=== PATIENT | male | born 1970 | race Caucasian/White ===

== ENCOUNTER → 2016-07-10 | Outpatient (REF) | payer OTHER | LOC: M SFHCLERA 12:29 | PROVIDERS: ATTEND Physician Assistant | DX: J02.9 Acute pharyngitis, unspecified (principal) ==

== ENCOUNTER → 2017-06-19 | Outpatient (REF) | payer OTHER ==
[2017-06-19 15:43] LABS: CHOLESTEROL LEVEL 272 MG/DL (<200); TRIGLYCERIDES LEVEL 287 MG/DL (<150)
== END ==
LOC: M SFHCLERA 09:02
DX: E78.5 Hyperlipidemia, unspecified (principal)

== ENCOUNTER → 2017-07-16 | Outpatient (CLI) | payer OTHER | LOC: M LRY 10:28 | DX: R07.81 Pleurodynia (principal) | CPT/HCPCS: 71100 ==

== ENCOUNTER → 2017-09-17 | Outpatient (REF) | payer OTHER ==
[2017-09-17 18:34] LABS: HEMATOCRIT 46.5 % (42.0-52.0); HEMOGLOBIN 15.5 g/dl (13.5-17.5); MEAN CORPUSCULAR HEMOGLOBIN 32.6 pg (27.0-33.0); MEAN CORPUSCULAR HGB CONC 33.3 g/dl (32.0-36.5); MEAN CORPUSCULAR VOLUME 97.7 fl (80.0-96.0); PLATELET COUNT, AUTOMATED 142 10^3/uL (150-450); RED BLOOD COUNT 4.76 10^6/uL (4.30-6.10); RED CELL DISTRIBUTION WIDTH 12.2 % (11.5-14.5); WHITE BLOOD COUNT 7.7 10^3/uL (4.0-10.0)
[2017-09-17 18:46] LABS: ALBUMIN 3.6 GM/DL (3.2-5.2); ALBUMIN/GLOBULIN RATIO 1.09 (1.00-1.93); ALKALINE PHOSPHATASE 142 U/L (45-117); ALT/SGPT 76 U/L (12-78); ANION GAP 5 MEQ/L (8-16); AST/SGOT 39 U/L (7-37); BILIRUBIN,TOTAL 0.4 MG/DL (0.2-1.0); BLOOD UREA NITROGEN 9 MG/DL (7-18); CALCIUM LEVEL 8.6 MG/DL (8.5-10.1); CARBON DIOXIDE LEVEL 35 MEQ/L (21-32); CHLORIDE LEVEL 97 MEQ/L (98-107); CHOLESTEROL LEVEL 163 MG/DL (<200); CREATININE FOR GFR 0.68 MG/DL (0.70-1.30); GLOMERULAR FILTRATION RATE > 60.0 (>60); GLUCOSE, FASTING 212 MG/DL (70-100); HDL CHOLESTEROL 50 MG/DL (>40); LDL CHOLESTEROL 88.6 MG/DL (<100); NON-HDL-C 113 MG/DL; POTASSIUM SERUM 3.6 MEQ/L (3.5-5.1); SODIUM LEVEL 137 MEQ/L (136-145); TOTAL PROTEIN 6.9 GM/DL (6.4-8.2); TRIGLYCERIDES LEVEL 122 MG/DL (<150)
[2017-09-17 18:51] LABS: ESTIMATED AVERAGE GLUCOSE 232 MG/DL (60-110); HEMOGLOBIN A1c 9.7 %
[2017-09-17 19:06] LABS: MALB URINE SIEMENS 15.5 MG/L; MAU/CREAT RATIO 9.3 MCG/MG (0.0-30.0)
== END ==
LOC: M SFHCLERA 09:37
DX: E11.65 Type 2 diabetes mellitus with hyperglycemia (principal); I10 Essential (primary) hypertension; E78.2 Mixed hyperlipidemia

== ENCOUNTER → 2018-02-05 | Outpatient (REF) | payer OTHER ==
[2018-02-05 19:02] LABS: ALBUMIN 3.5 GM/DL (3.2-5.2); ALBUMIN/GLOBULIN RATIO 0.97 (1.00-1.93); ALKALINE PHOSPHATASE 119 U/L (45-117); ALT/SGPT 56 U/L (12-78); ANION GAP 7 MEQ/L (8-16); AST/SGOT 26 U/L (7-37); BILIRUBIN,TOTAL 0.3 MG/DL (0.2-1.0); BLOOD UREA NITROGEN 10 MG/DL (7-18); CALCIUM LEVEL 8.6 MG/DL (8.5-10.1); CARBON DIOXIDE LEVEL 35 MEQ/L (21-32); CHLORIDE LEVEL 99 MEQ/L (98-107); CREATININE FOR GFR 0.73 MG/DL (0.70-1.30); GLOMERULAR FILTRATION RATE > 60.0 (>60); GLUCOSE, FASTING 133 MG/DL (70-100); POTASSIUM SERUM 3.9 MEQ/L (3.5-5.1); SODIUM LEVEL 141 MEQ/L (136-145); TOTAL PROTEIN 7.1 GM/DL (6.4-8.2)
[2018-02-05 19:07] LABS: ESTIMATED AVERAGE GLUCOSE 180 MG/DL (60-110); HEMOGLOBIN A1c 7.9 %
== END ==
LOC: M SFHCLERA 09:09
DX: E11.65 Type 2 diabetes mellitus with hyperglycemia (principal)

== ENCOUNTER → 2018-05-07 | Outpatient (REF) | payer OTHER ==
[2018-05-07 19:08] LABS: ALBUMIN 3.7 GM/DL (3.2-5.2); ALBUMIN/GLOBULIN RATIO 1.09 (1.00-1.93); ALKALINE PHOSPHATASE 110 U/L (45-117); ALT/SGPT 53 U/L (12-78); ANION GAP 6 MEQ/L (8-16); AST/SGOT 25 U/L (7-37); BILIRUBIN,TOTAL 0.4 MG/DL (0.2-1.0); BLOOD UREA NITROGEN 11 MG/DL (7-18); CALCIUM LEVEL 8.5 MG/DL (8.5-10.1); CARBON DIOXIDE LEVEL 33 MEQ/L (21-32); CHLORIDE LEVEL 100 MEQ/L (98-107); CREATININE FOR GFR 0.74 MG/DL (0.70-1.30); GLOMERULAR FILTRATION RATE > 60.0 (>60); GLUCOSE, FASTING 125 MG/DL (70-100); POTASSIUM SERUM 4.2 MEQ/L (3.5-5.1); SODIUM LEVEL 139 MEQ/L (136-145); TOTAL PROTEIN 7.1 GM/DL (6.4-8.2)
[2018-05-07 19:28] LABS: ESTIMATED AVERAGE GLUCOSE 160 MG/DL (60-110); HEMOGLOBIN A1c 7.2 %
== END ==
LOC: M SFHCLERA 09:36
DX: E11.65 Type 2 diabetes mellitus with hyperglycemia (principal)

== ENCOUNTER → 2018-08-03 | Outpatient (REF) | payer OTHER | LOC: M SFHCLERA 14:22 | PROVIDERS: ATTEND Physician Assistant | DX: R50.9 Fever, unspecified (principal) ==

== ENCOUNTER → 2018-11-05 | Outpatient (REF) | payer OTHER ==
[2018-11-05 11:40] LABS: ALBUMIN 3.4 GM/DL (3.2-5.2); ALT/SGPT 90 U/L (12-78); BILIRUBIN,TOTAL 0.3 MG/DL (0.2-1.0); BLOOD UREA NITROGEN 15 MG/DL (7-18); CALCIUM LEVEL 8.2 MG/DL (8.5-10.1); CARBON DIOXIDE LEVEL 30 MEQ/L (21-32); CHLORIDE LEVEL 102 MEQ/L (98-107); CHOLESTEROL LEVEL 176 MG/DL (<200); CREATININE FOR GFR 0.77 MG/DL (0.70-1.30); GLOMERULAR FILTRATION RATE > 60.0 (>60); GLUCOSE, FASTING 243 MG/DL (70-100); HDL CHOLESTEROL 51 MG/DL (>40); LDL CHOLESTEROL 89 MG/DL (<100); NON-HDL-C 125 MG/DL; POTASSIUM SERUM 3.8 MEQ/L (3.5-5.1); SODIUM LEVEL 140 MEQ/L (136-145); TOTAL PROTEIN 7.2 GM/DL (6.4-8.2); TRIGLYCERIDES LEVEL 180 MG/DL (<150)
[2018-11-05 11:52] LABS: HEMOGLOBIN A1c 7.8 %
[2018-11-05 12:16] LABS: MALB URINE SIEMENS 7.2 MG/L; MAU/CREAT RATIO 6.9 MCG/MG (0.0-30.0)
== END ==
LOC: M SFHCLERA 09:53
PROVIDERS: ATTEND Family Medicine
DX: E11.65 Type 2 diabetes mellitus with hyperglycemia (principal)

== ENCOUNTER → 2019-02-17 | Outpatient (REF) | payer OTHER ==
[2019-02-17 19:10] LABS: ALBUMIN 3.6 GM/DL (3.2-5.2); ALT/SGPT 101 U/L (12-78); BILIRUBIN,TOTAL 0.3 MG/DL (0.2-1.0); BLOOD UREA NITROGEN 11 MG/DL (7-18); CALCIUM LEVEL 8.7 MG/DL (8.5-10.1); CARBON DIOXIDE LEVEL 34 MEQ/L (21-32); CHLORIDE LEVEL 99 MEQ/L (98-107); CHOLESTEROL LEVEL 202 MG/DL (<200); CHOLESTEROL RISK RATIO 3.311 (<5); CREATININE FOR GFR 0.72 MG/DL (0.70-1.30); GLOMERULAR FILTRATION RATE > 60.0 (>60); GLUCOSE, FASTING 179 MG/DL (70-100); HDL CHOLESTEROL 61 MG/DL (>40); LDL CHOLESTEROL 107 MG/DL (<100); NON-HDL-C 141 MG/DL; POTASSIUM SERUM 3.7 MEQ/L (3.5-5.1); SODIUM LEVEL 139 MEQ/L (136-145); TOTAL PROTEIN 6.9 GM/DL (6.4-8.2); TRIGLYCERIDES LEVEL 171 MG/DL (<150)
[2019-02-17 19:24] LABS: HEMOGLOBIN A1c 7.7 %
== END ==
LOC: M SFHCLERA 09:09
PROVIDERS: ATTEND Family Medicine
DX: E11.65 Type 2 diabetes mellitus with hyperglycemia (principal)

== ENCOUNTER → 2019-08-10 | Outpatient (REF) | payer OTHER ==
[2019-08-10 15:21] LABS: ALBUMIN 3.7 GM/DL (3.2-5.2); ALT/SGPT 52 U/L (12-78); BILIRUBIN,TOTAL 0.7 MG/DL (0.2-1.0); BLOOD UREA NITROGEN 14 MG/DL (7-18); CALCIUM LEVEL 8.7 MG/DL (8.5-10.1); CARBON DIOXIDE LEVEL 32 MEQ/L (21-32); CHLORIDE LEVEL 98 MEQ/L (98-107); CHOLESTEROL LEVEL 176 MG/DL (<200); CHOLESTEROL RISK RATIO 3.034 (<5); CREATININE FOR GFR 0.86 MG/DL (0.70-1.30); GLOMERULAR FILTRATION RATE > 60.0 (>60); GLUCOSE, FASTING 248 MG/DL (70-100); HDL CHOLESTEROL 58 MG/DL (>40); LDL CHOLESTEROL 88 MG/DL (<100); NON-HDL-C 118 MG/DL; POTASSIUM SERUM 3.6 MEQ/L (3.5-5.1); SODIUM LEVEL 136 MEQ/L (136-145); TOTAL PROTEIN 7.3 GM/DL (6.4-8.2); TRIGLYCERIDES LEVEL 148 MG/DL (<150)
[2019-08-10 15:37] LABS: HEMOGLOBIN A1c 7.8 %
[2019-08-10 15:41] LABS: MAU/CREAT RATIO 8.2 MCG/MG (0.0-30.0)
== END ==
LOC: M SFHCLERA 09:00
PROVIDERS: ATTEND Family Medicine
DX: R74.0 Nonspecific elevation of levels of transaminase and lactic acid dehydrogenase [LDH] (principal); E11.65 Type 2 diabetes mellitus with hyperglycemia; E78.2 Mixed hyperlipidemia

== ENCOUNTER → 2019-12-17 | Outpatient (CLI) | payer OTHER ==
--- NOTE | 2019-12-17 10:30 | PFTRPT ---
Height: 74.00 Inches Weight: 360.00 Lbs BSA: 2.79 Diagnosis: R05 DATE OF PROCEDURE: 12/17/2019 ORDERED BY: Dr. Tomás Joel Spirometry: Pre and post bronchodilator study of excellent technical quality. Forced vital capacity normal. FEV1 in proportion. Obstructive index is, therefore, normal. Flow Volume Loop: Expiratory limb of the flow volume loop is normal. No significant bronchodilator response is identified. Lung Volumes: Total lung capacity normal. Residual volume is reasonably in proportion. Diffusing Capacity: Diffusing capacity normal. Hemoglobin: Hemoglobin acceptable at 14.9. Airway Mechanics: Airway resistance and conductance are normal. IMPRESSION: Essentially normal study. MTDD
== END ==
LOC: M CARPUL 09:58
PROVIDERS: ATTEND Family Medicine
DX: R05 Cough (principal)

== ENCOUNTER → 2020-07-22 | Outpatient (CLI) | payer OTHER ==
[2020-07-22 11:04] LABS: BLOOD UREA NITROGEN 10 MG/DL (7-18); CALCIUM LEVEL 9.5 MG/DL (8.5-10.1); CARBON DIOXIDE LEVEL 33 MEQ/L (21-32); CHLORIDE LEVEL 93 MEQ/L (98-107); CREATININE FOR GFR 0.84 MG/DL (0.70-1.30); GLOMERULAR FILTRATION RATE > 60.0 (>60); GLUCOSE, FASTING 315 MG/DL (70-100); POTASSIUM SERUM 3.6 MEQ/L (3.5-5.1); SODIUM LEVEL 135 MEQ/L (136-145)
[2020-07-22 11:06] LABS: HEMOGLOBIN A1c 11.2 %
== END ==
LOC: M WUC 08:08
PROVIDERS: ATTEND Family Medicine
DX: E11.9 Type 2 diabetes mellitus without complications (principal)

== ENCOUNTER → 2020-08-13 | Outpatient (CLI) | payer OTHER ==
[2020-08-13 10:56] LABS: BASO % 0.6 % (0.0-1.0); EOS # 0.1 10^3/uL (0.0-0.5); EOS % 0.9 % (0.0-3.0); HEMATOCRIT 45.1 % (42.0-52.0); HEMOGLOBIN 15.1 g/dl (13.5-17.5); LYMPH # 1.3 10^3/uL (1.5-5.0); LYMPH % 20.8 % (24.0-44.0); MEAN CORPUSCULAR HEMOGLOBIN 32.1 pg (27.0-33.0); MEAN CORPUSCULAR HGB CONC 33.5 g/dl (32.0-36.5); MONO # 0.8 10^3/uL (0.0-0.8); MONO % 12.4 % (2.0-8.0); NEUTROPHILS # 4.2 10^3/uL (1.5-8.5); NEUTROPHILS % 64.5 % (36.0-66.0); WHITE BLOOD COUNT 6.5 10^3/uL (4.0-10.0)
--- NOTE | 2020-08-13 11:12 | REP ---
INDICATION: ABD DISCOMFORT. COMPARISON: None. TECHNIQUE: Real-time sonographic evaluation of ABDOMEN performed. FINDINGS: The gallbladder demonstrates no evidence of intraluminal sludge or calculi, wall thickening or pericholecystic fluid. There is no intrahepatic or extrahepatic biliary dilatation, common bile duct measures 4 mm in maximum diameter. Liver demonstrates diffuse heterogeneous increased echotexture compatible with diffuse fibrofatty infiltration. No gross liver mass is seen. The pancreas is grossly unremarkable, not well seen due to overlying bowel gas. The spleen is enlarged, measuring 15.5 x 14.8 x 5.8 cm. The splenic index is 1331. There is no evidence of hydronephrosis, cyst, mass, or calculus in either kidney. The right kidney measures 15.6 x 7.7 x 5.5 cm. Left renal dimensions are 14.9 x 6.1 x 6.3 cm. The abdominal aorta is not seen due to overlying bowel gas. No free fluid is seen. IMPRESSION: Diffuse fibrofatty infiltration of the liver. Splenomegaly. No free fluid. <Electronically signed by Nash Ruiz > 08/13/20 [id number]
[2020-08-13 11:21] LABS: ALBUMIN 3.6 GM/DL (3.2-5.2); ALT/SGPT 66 U/L (12-78); BILIRUBIN,TOTAL 0.5 MG/DL (0.2-1.0); BLOOD UREA NITROGEN 11 MG/DL (7-18); CALCIUM LEVEL 9.1 MG/DL (8.5-10.1); CARBON DIOXIDE LEVEL 32 MEQ/L (21-32); CHLORIDE LEVEL 97 MEQ/L (98-107); CHOLESTEROL LEVEL 206 MG/DL (<200); CHOLESTEROL RISK RATIO 3.269 (<5); CREATININE FOR GFR 0.81 MG/DL (0.70-1.30); GLOMERULAR FILTRATION RATE > 60.0 (>60); GLUCOSE, FASTING 279 MG/DL (70-100); HDL CHOLESTEROL 63 MG/DL (>40); LDL CHOLESTEROL 118 MG/DL (<100); LIPASE 209 U/L (73-393); NON-HDL-C 143 MG/DL; POTASSIUM SERUM 3.5 MEQ/L (3.5-5.1); SODIUM LEVEL 137 MEQ/L (136-145); TOTAL PROTEIN 7.3 GM/DL (6.4-8.2); TRIGLYCERIDES LEVEL 124 MG/DL (<150)
== END ==
LOC: M RAD 09:14
PROVIDERS: ATTEND Family Medicine
DX: K76.0 Fatty (change of) liver, not elsewhere classified (principal); R16.1 Splenomegaly, not elsewhere classified; R10.9 Unspecified abdominal pain; E78.2 Mixed hyperlipidemia

== ENCOUNTER → 2020-08-30 | Outpatient (CLI) | payer OTHER ==
[2020-08-30 10:14] LABS: BASO # 0.1 10^3/uL (0.0-0.2); BASO % 0.7 % (0.0-1.0); EOS # 0.1 10^3/uL (0.0-0.5); EOS % 1.4 % (0.0-3.0); HEMATOCRIT 45.8 % (42.0-52.0); HEMOGLOBIN 15.6 g/dl (13.5-17.5); LYMPH # 1.5 10^3/uL (1.5-5.0); LYMPH % 22.2 % (24.0-44.0); MEAN CORPUSCULAR HEMOGLOBIN 32.8 pg (27.0-33.0); MEAN CORPUSCULAR HGB CONC 34.1 g/dl (32.0-36.5); MEAN CORPUSCULAR VOLUME 96.2 fl (80.0-96.0); MONO # 0.8 10^3/uL (0.0-0.8); NEUTROPHILS # 4.4 10^3/uL (1.5-8.5); NEUTROPHILS % 63.3 % (36.0-66.0); PLATELET COUNT, AUTOMATED 124 10^3/uL (150-450); RED BLOOD COUNT 4.76 10^6/uL (4.30-6.10); WHITE BLOOD COUNT 6.9 10^3/uL (4.0-10.0)
[2020-08-30 10:38] LABS: ALBUMIN 3.5 GM/DL (3.2-5.2); ALT/SGPT 64 U/L (12-78); BILIRUBIN,TOTAL 0.7 MG/DL (0.2-1.0); BLOOD UREA NITROGEN 10 MG/DL (7-18); CALCIUM LEVEL 9.2 MG/DL (8.5-10.1); CARBON DIOXIDE LEVEL 35 MEQ/L (21-32); CHLORIDE LEVEL 94 MEQ/L (98-107); CREATININE FOR GFR 0.96 MG/DL (0.70-1.30); GLOMERULAR FILTRATION RATE > 60.0 (>60); GLUCOSE, FASTING 301 MG/DL (70-100); POTASSIUM SERUM 3.5 MEQ/L (3.5-5.1); SODIUM LEVEL 134 MEQ/L (136-145); TOTAL PROTEIN 7.3 GM/DL (6.4-8.2)
== END ==
LOC: M LAB 09:23
PROVIDERS: ATTEND Family Medicine
DX: R74.8 Abnormal levels of other serum enzymes (principal); D69.1 Qualitative platelet defects

== ENCOUNTER → 2020-10-23 | Outpatient (CLI) | payer OTHER ==
[2020-10-23 10:41] LABS: INR 0.98; PROTHROMBIN TIME 13.2 SECONDS (12.5-14.3)
[2020-10-23 10:42] LABS: PARTIAL THROMBOPLASTIN TIME 33.2 SECONDS (24.2-38.5)
[2020-10-23 11:18] LABS: ALBUMIN 3.5 GM/DL (3.2-5.2); ALT/SGPT 50 U/L (12-78); BILIRUBIN,DIRECT 0.2 MG/DL (0.0-0.2); BILIRUBIN,TOTAL 0.6 MG/DL (0.2-1.0); BLOOD UREA NITROGEN 7 MG/DL (7-18); CALCIUM LEVEL 8.9 MG/DL (8.5-10.1); CARBON DIOXIDE LEVEL 30 MEQ/L (21-32); CHLORIDE LEVEL 96 MEQ/L (98-107); CREATININE FOR GFR 0.64 MG/DL (0.70-1.30); GLOMERULAR FILTRATION RATE > 60.0 (>60); GLUCOSE, FASTING 269 MG/DL (70-100); IRON (FE) 76 UG/DL (65-175); PERCENT SATURATION 21.8 % (19.7-50.0); POTASSIUM SERUM 3.5 MEQ/L (3.5-5.1); SODIUM LEVEL 134 MEQ/L (136-145); TOTAL IRON BINDING CAPACITY 348 UG/DL (250-450); TOTAL PROTEIN 7.4 GM/DL (6.4-8.2)
[2020-10-23 12:17] LABS: HEPATITIS B SURFACE ANTIGEN NEGATIVE (NEGATIVE)
[2020-10-28 00:10] LABS: ANTI-MITOCHONDRIAL ANTIBODY <20.0 Units (0.0-20.0); ANTI-SMOOTH MUSCLE ANTIBODY 15 Units (0-19); ANTINUCLEAR ANTIBODIES DIRECT Negative (Negative); HEPATITIS A IgG TOTAL Negative (Negative); LIVER-KIDNEY MICROSOMAL ABY <20.1 Units (0.0-20.0)
== END ==
LOC: M WUC 08:04
PROVIDERS: ATTEND Internal Medicine Gastroenterology
DX: R94.5 Abnormal results of liver function studies (principal)

== ENCOUNTER → 2020-11-29 | Outpatient (CLI) | payer OTHER ==
[~2020-11-29] MED LIST: ATOR40TA75; CHLO125TA; FOLI1TAB11; GLIP2.5T6; JANU100T; LOSA100T50; METF-838; VITA100T28
== END ==
LOC: M LABSMTC 09:18
PROVIDERS: ATTEND Anesthesiology
DX: Z01.812 Encounter for preprocedural laboratory examination (principal); Z20.822 Contact with and (suspected) exposure to COVID-19

== ENCOUNTER 2020-12-04 08:02 | Day surgery (SDC) | payer OTHER ==
[~2020-12-04] VITALS: Ht 188 cm; Wt 156.5 kg
[~2020-12-04 08:02] MED LIST changes: +NS 1,000 ML IV ONE
[2020-12-04] MEDS ORDERED: fentaNYL 100 MCG/2 ML INJECTION (J3010) As Ordered ONE (09:28)
[2020-12-04] MEDS ORDERED: propofoL 200 MG/20 ML VIAL As Ordered ONE ×2 (09:28→09:53)
[2020-12-04] MEDS ORDERED: LIDOCAINE 2% 100MG/5ML SDV (FOR ANES.) As Ordered ONE (09:28)
--- NOTE | 2020-12-04 10:29 | ROOR ---
Patient Name: Rogelio Miles Procedure Date: 12/04/2020 9:37 AM Date of : 1970 Age: 50 Room: [facility] Gender: Male Note Status: Finalized Procedure: Upper GI endoscopy Indications: Cirrhosis with suspected esophageal varices Providers: Johnathon Velasco MD Referring MD: Tomás Joel DO Requesting Provider: Medicines: Monitored Anesthesia Care Complications: No immediate complications. Procedure: Pre-Anesthesia Assessment: - Prior to the procedure, a History and Physical was performed, and patient medications and allergies were reviewed. The patient is competent. The risks and benefits of the procedure and the sedation options and risks were discussed with the patient. All questions were answered and informed consent was obtained. Patient identification and proposed procedure were verified by the physician and the nurse in the procedure room. Mental Status Examination: normal. Airway Examination: normal oropharyngeal airway and neck mobility. Respiratory Examination: clear to auscultation. CV Examination: normal. Prophylactic Antibiotics: The patient does not require prophylactic antibiotics. Prior Anticoagulants: The patient has taken no previous anticoagulant or antiplatelet agents. ASA Grade Assessment: II - A patient with mild systemic disease. After reviewing the risks and benefits, the patient was deemed in satisfactory condition to undergo the procedure. The anesthesia plan was to use monitored anesthesia care (MAC). Immediately prior to administration of medications, the patient was re-assessed for adequacy to receive sedatives. The heart rate, respiratory rate, oxygen saturations, blood pressure, adequacy of pulmonary ventilation, and response to care were monitored throughout the procedure. The physical status of the patient was re-assessed after the procedure. The Endoscope was introduced through the mouth, and advanced to the second part of duodenum. The upper GI endoscopy was accomplished without difficulty. The patient tolerated the procedure well. Findings: No gross lesions were noted in the entire esophagus. The Z-line was regular and was found at the gastroesophageal junction. Diffuse severe inflammation characterized by adherent blood, congestion (edema), erythema, friability and granularity was found in the gastric fundus, in the gastric body and in the gastric antrum. Biopsies were taken with a cold forceps for histology. Biopsies were taken with a cold forceps for Helicobacter pylori testing. Verification of patient identification for the specimen was done by the physician and nurse using the patient's name, date and medical record number. Estimated blood loss was minimal. The duodenal bulb and second portion of the duodenum were normal. Biopsies were taken with a cold forceps for histology. Impression: - No gross lesions in esophagus. - Z-line regular, at the gastroesophageal junction. - Gastritis. Biopsied. - Normal duodenal bulb and second portion of the duodenum. Biopsied. Recommendation: - Patient has a contact number available for emergencies. The signs and symptoms of potential delayed complications were discussed with the patient. Return to normal activities tomorrow. Written discharge instructions were provided to the patient. - High fiber diet. - Continue present medications. - Await pathology results. - Return to GI clinic in [facility] (address [address], [address], [place], [facility]) in 4 -- 6 weeks. Please call GI clinic @ [phone] for apppointment date and time. - Return to primary care physician. Procedure Code(s): --- Professional --- 35709, Esophagogastroduodenoscopy, flexible, transoral; with biopsy, single or multiple Diagnosis Code(s): --- Professional --- K29.70, Gastritis, unspecified, without bleeding K74.60, Unspecified cirrhosis of liver CPT copyright 2019 [employer]. All rights reserved. The codes documented in this report are preliminary and upon software firmware engineer review may be revised to meet current compliance requirements. Johnathon Velasco MD Johnathon Velasco MD 12/04/2020 10:29:44 AM Electronically signed by Johnathon Velasco MD Number of Addenda: 0 Note Initiated On: 12/04/2020 9:37 AM Estimated Blood Loss: Estimated blood loss was minimal.
[2020-12-04 10:40] VITALS: BP 163/97
--- NOTE | 2020-12-04 11:05 | ROOR ---
Patient Name: Rogelio Miles Procedure Date: 12/04/2020 9:37 AM Date of : 1970 Age: 50 Room: [facility] Gender: Male Note Status: Finalized Procedure: Colonoscopy Indications: Screening for colorectal malignant neoplasm Providers: Johnathon Velasco MD Referring MD: Tomás Joel DO Requesting Provider: Medicines: Monitored Anesthesia Care Complications: No immediate complications. Procedure: Pre-Anesthesia Assessment: - Prior to the procedure, a History and Physical was performed, and patient medications and allergies were reviewed. The patient is competent. The risks and benefits of the procedure and the sedation options and risks were discussed with the patient. All questions were answered and informed consent was obtained. Patient identification and proposed procedure were verified by the physician, the nurse and the anesthesiologist in the procedure room. Mental Status Examination: alert and oriented. Airway Examination: normal oropharyngeal airway and neck mobility. Respiratory Examination: clear to auscultation. CV Examination: normal. Prophylactic Antibiotics: The patient does not require prophylactic antibiotics. Prior Anticoagulants: The patient has taken no previous anticoagulant or antiplatelet agents. ASA Grade Assessment: II - A patient with mild systemic disease. After reviewing the risks and benefits, the patient was deemed in satisfactory condition to undergo the procedure. The anesthesia plan was to use monitored anesthesia care (MAC). Immediately prior to administration of medications, the patient was re-assessed for adequacy to receive sedatives. The heart rate, respiratory rate, oxygen saturations, blood pressure, adequacy of pulmonary ventilation, and response to care were monitored throughout the procedure. The physical status of the patient was re-assessed after the procedure. The Colonoscope was introduced through the anus and advanced to the terminal ileum, with identification of the appendiceal orifice and IC valve. The colonoscopy was performed without difficulty. The patient tolerated the procedure well. The quality of the bowel preparation was good. The terminal ileum, ileocecal valve, appendiceal orifice, and rectum were photographed. Scope insertion time was 2 minutes. Scope withdrawal time was 9 minutes. The total duration of the procedure was 12 minutes. Findings: The perianal and digital rectal examinations were normal. The terminal ileum appeared normal. Six sessile polyps were found in the rectum and descending colon. The polyps were 4 to 16 mm in size. These polyps were removed with a hot snare. Resection and retrieval were complete. Verification of patient identification for the specimen was done by the physician and nurse using the patient's name, date and medical record number. Estimated blood loss was minimal. Non-bleeding external and internal hemorrhoids were found during retroflexion. The hemorrhoids were medium-sized. Impression: - The examined portion of the ileum was normal. - Six 4 to 16 mm polyps in the rectum and in the descending colon, removed with a hot snare. Resected and retrieved. - Non-bleeding external and internal hemorrhoids. Recommendation: - Patient has a contact number available for emergencies. The signs and symptoms of potential delayed complications were discussed with the patient. Return to normal activities tomorrow. Written discharge instructions were provided to the patient. - High fiber diet. - Continue present medications. - Await pathology results. - Repeat colonoscopy in 3 - 5 years for surveillance based on pathology results. - Telephone GI clinic for pathology results in 2 weeks. - Return to GI clinic in [facility] (address [address], [address], [place], [facility]) in 4 -- 6 weeks. Please call GI clinic @ [phone] for apppointment date and time. - Return to primary care physician. Procedure Code(s): --- Professional --- 72569, Colonoscopy, flexible; with removal of tumor(s), polyp(s), or other lesion(s) by snare technique Diagnosis Code(s): --- Professional --- Z12.11, Encounter for screening for malignant neoplasm of colon K64.8, Other hemorrhoids K62.1, Rectal polyp K63.5, Polyp of colon CPT copyright 2019 [employer]. All rights reserved. The codes documented in this report are preliminary and upon log deckman review may be revised to meet current compliance requirements. Johnathon Velasco MD Johnathon Velasco MD 12/04/2020 11:04:40 AM Electronically signed by Johnathon Velasco MD Number of Addenda: 0 Note Initiated On: 12/04/2020 9:37 AM Estimated Blood Loss: Estimated blood loss was minimal.
== END 2020-12-04 11:15 | disposition home or self-care (01) ==
LOC: M OPP 08:02
PROVIDERS: ATTEND Internal Medicine Gastroenterology
DX: Z12.11 Encounter for screening for malignant neoplasm of colon (principal); K63.5 Polyp of colon; K62.1 Rectal polyp; K64.8 Other hemorrhoids; K29.70 Gastritis, unspecified, without bleeding; K74.60 Unspecified cirrhosis of liver; Z79.84 Long term (current) use of oral hypoglycemic drugs; Z79.899 Other long term (current) drug therapy; F17.210 Nicotine dependence, cigarettes, uncomplicated
CPT/HCPCS: 43239; 45385; 88305; J3010

== ENCOUNTER → 2021-01-24 | Outpatient (CLI) | payer OTHER ==
[~2021-01-24] MED LIST changes: -NS 1,000 ML IV ONE
[2021-01-24 09:29] LABS: APPEARANCE, URINE CLEAR (CLEAR); BACTERIA, URINE AUTO NEGATIVE (NEGATIVE); BILIRUBIN, URINE AUTO NEGATIVE (NEGATIVE); BLOOD, URINE BLOOD NEGATIVE (NEGATIVE); COLOR, URINE YELLOW (YELLOW); GLUCOSE, URINE (UA) AUTO 1+ mg/dL (NEGATIVE); KETONE, URINE AUTO NEGATIVE (NEGATIVE); LEUKOCYTE ESTERASE, URINE AUTO NEGATIVE (NEGATIVE); MUCUS, URINE SMALL (NEGATIVE); NITRITE, URINE AUTO NEGATIVE (NEGATIVE); PROTEIN, URINE AUTO NEGATIVE (NEGATIVE); RBC, URINE AUTO 0 /HPF (0-3); SPECIFIC GRAVITY URINE AUTO 1.009 (1.002-1.035); SQUAMOUS EPITHELIAL CELL UR AU 0 /HPF (0-6); WBC, URINE AUTO 0 /HPF (0-3)
[2021-01-24 09:50] LABS: BLOOD UREA NITROGEN 13 MG/DL (7-18); CALCIUM LEVEL 8.5 MG/DL (8.5-10.1); CARBON DIOXIDE LEVEL 32 MEQ/L (21-32); CHLORIDE LEVEL 101 MEQ/L (98-107); CREATININE FOR GFR 0.82 MG/DL (0.70-1.30); GLOMERULAR FILTRATION RATE > 60.0 (>60); GLUCOSE, FASTING 170 MG/DL (70-100); POTASSIUM SERUM 4.1 MEQ/L (3.5-5.1); SODIUM LEVEL 138 MEQ/L (136-145)
[2021-01-24 09:57] LABS: MALB URINE SIEMENS 6.3 MG/L; MAU/CREAT RATIO 10.6 MCG/MG (0.0-30.0)
[2021-01-24 10:47] LABS: HEMOGLOBIN A1c 6.8 %
== END ==
LOC: M LAB 08:32
PROVIDERS: ATTEND Family Medicine
DX: E11.65 Type 2 diabetes mellitus with hyperglycemia (principal)

== ENCOUNTER → 2021-07-01 | Outpatient (CLI) | payer OTHER ==
[~2021-07-01] MED LIST changes: +LOSA100T45; -LOSA100T50
== END ==
LOC: M LAB 11:07
PROVIDERS: ATTEND Family Medicine
DX: E87.6 Hypokalemia (principal)

== ENCOUNTER → 2021-07-04 | Outpatient (CLI) | payer OTHER ==
[2021-07-04 10:47] LABS: CALCIUM LEVEL 8.6 MG/DL (8.5-10.1); CREATININE FOR GFR 1.73 MG/DL (0.70-1.30); GLOMERULAR FILTRATION RATE 44.9 (>60); POTASSIUM SERUM 3.3 MEQ/L (3.5-5.1)
== END ==
LOC: M LAB 09:28
PROVIDERS: ATTEND Family Medicine
DX: E87.6 Hypokalemia (principal)

== ENCOUNTER → 2021-07-18 | Outpatient (CLI) | payer OTHER | LOC: M LAB 08:35 | PROVIDERS: ATTEND Family Medicine | DX: R31.0 Gross hematuria (principal) ==

== ENCOUNTER → 2021-08-14 | Outpatient (CLI) | payer OTHER ==
[~2021-08-14] MED LIST changes: -ATOR40TA75; +ATOR40TA75 PO; -FOLI1TAB11; +FOLI1TAB11 PO; +FURO20TA2 PO; +GLIP5TAB8 PO; -JANU100T; +JANU100T PO; -METF-838; +METF-838 PO; +OMEP40CA4 PO; +SPIR50TA4 PO; -VITA100T28; +VITA100T28 PO
[2021-08-14 13:55] VITALS: BP 140/66
[2021-08-14 14:04] LABS: APPEARANCE, BODY FLUID HAZY (CLEAR); ASCITES FL COLOR YELLOW (COLORLESS); SOURCE, BODY FLUID ASCITES
[2021-08-14 14:32] LABS: SOURCE, BODY FLUID ALBUMIN ASCITES; SOURCE, BODY FLUID TOT PROTEIN ASCITES
== END ==
LOC: M IRPRO 12:29
PROVIDERS: ATTEND Internal Medicine Gastroenterology
DX: R18.8 Other ascites (principal); K74.60 Unspecified cirrhosis of liver; K40.20 Bilateral inguinal hernia, without obstruction or gangrene, not specified as recurrent; N49.2 Inflammatory disorders of scrotum

== ENCOUNTER 2021-08-17 10:30 | Inpatient (IN) | payer OTHER ==
[~2021-08-17] VITALS: Ht 188 cm; Wt 170.4 kg
[~2021-08-17 10:30] MED LIST changes: -GLIP5TAB8 PO
[2021-08-17 14:47] LABS: BASO # 0.1 10^3/uL (0.0-0.2); BASO % 0.6 % (0.0-1.0); EOS # 0.2 10^3/uL (0.0-0.5); EOS % 2.6 % (0.0-3.0); HEMATOCRIT 33.7 % (42.0-52.0); HEMOGLOBIN 11.7 g/dl (13.5-17.5); LYMPH # 1.7 10^3/uL (1.5-5.0); LYMPH % 21.4 % (24.0-44.0); MEAN CORPUSCULAR HEMOGLOBIN 34.6 pg (27.0-33.0); MEAN CORPUSCULAR HGB CONC 34.7 g/dl (32.0-36.5); MEAN CORPUSCULAR VOLUME 99.7 fl (80.0-96.0); MONO % 12.7 % (2.0-8.0); NEUTROPHILS % 62.3 % (36.0-66.0); RED BLOOD COUNT 3.38 10^6/uL (4.30-6.10)
[2021-08-17 15:55] LABS: ALBUMIN 2.5 GM/DL (3.2-5.2); ALT/SGPT 58 U/L (12-78); BILIRUBIN,DIRECT 2.4 MG/DL (0.0-0.2); BILIRUBIN,TOTAL 5.1 MG/DL (0.2-1.0); BLOOD UREA NITROGEN 12 MG/DL (7-18); CALCIUM LEVEL 8.4 MG/DL (8.5-10.1); CARBON DIOXIDE LEVEL 28 MEQ/L (21-32); CHLORIDE LEVEL 105 MEQ/L (98-107); GLOMERULAR FILTRATION RATE > 60.0 (>60); GLUCOSE, FASTING 89 MG/DL (70-100); LIPASE 129 U/L (73-393); SODIUM LEVEL 138 MEQ/L (136-145); TOTAL PROTEIN 6.4 GM/DL (6.4-8.2)
[2021-08-17] MEDS ORDERED: PIPERACILLIN/TAZOBACTAM SOD 3.375 GM in D5W MINI-BAG PLUS 50 ML IV ONE (16:50)
[2021-08-17] MEDS ORDERED: VANCOMYCIN HCL 1,000 MG, VIAL MATE ADAPTER 1 EACH in NS 250 ML IV ONE ×2 (16:50→21:00)
[2021-08-17] MEDS ORDERED: MAALOX 30 ML SUSP *UDC PO PRN (17:35)
[2021-08-17] MEDS ORDERED: MOM 30ML SUSPENSION UDC PO PRN (17:35)
[2021-08-17] MEDS ORDERED: GLUCOSE 4GM CHEW TABLET PO PRN (17:35)
[2021-08-17] MEDS ORDERED: GLUCAGON INJ 1MG VIAL SC PRN (17:35)
[2021-08-17] MEDS ORDERED: DEXTROSE 50% 50 ML SYRINGE IV PRN (17:35)
[2021-08-17] MEDS ORDERED: VANCOMYCIN HCL 1,000 MG, VIAL MATE ADAPTER 1 EACH in NS 250 ML IV SCH (17:35)
[2021-08-17] MEDS ORDERED: ISOVUE-370 76% 100ML VIAL As Ordered ONE (17:49)
[2021-08-17] MEDS ORDERED: NYSTATIN 100,000 UNITS/GM TOPICAL PWD 15 GM TOP PRN (18:00)
[2021-08-17] MEDS ORDERED: NICOTINE 7 MG/24 HR TRANSDERMAL TD ONE (18:15)
[2021-08-17] MEDS ORDERED: GLIP5TAB8 PO (18:16)
[2021-08-17] MEDS ORDERED: HOME MED LIST COMPLETE! XX SCH (18:20)
[2021-08-17 18:36] LABS: NT-PRO BNP 154 PG/ML (<125)
[2021-08-17 18:45] LABS: RSV AMPLIFICATION NEGATIVE (NEGATIVE)
[2021-08-17 18:54] LABS: INR 1.43; PROTHROMBIN TIME 17.9 SECONDS (12.7-14.5)
[2021-08-17 19:36] LABS: APPEARANCE, URINE TURBID (CLEAR); BACTERIA, URINE AUTO NEGATIVE (NEGATIVE); BILIRUBIN, URINE AUTO 1+ (NEGATIVE); BLOOD, URINE BLOOD NEGATIVE (NEGATIVE); COLOR, URINE AMBER (YELLOW); GLUCOSE, URINE (UA) AUTO 1+ mg/dL (NEGATIVE); KETONE, URINE AUTO TRACE mg/dL (NEGATIVE); LEUKOCYTE ESTERASE, URINE AUTO NEGATIVE (NEGATIVE); MUCUS, URINE LARGE (NEGATIVE); NITRITE, URINE AUTO NEGATIVE (NEGATIVE); PROTEIN, URINE AUTO 2+ mg/dL (NEGATIVE); RBC, URINE AUTO 0 /HPF (0-3); SPECIFIC GRAVITY URINE AUTO 1.034 (1.002-1.035); SQUAMOUS EPITHELIAL CELL UR AU 0 /HPF (0-6); WBC, URINE AUTO 0 /HPF (0-3)
[2021-08-17 20:10] VITALS: BP 145/66
[2021-08-17] MEDS: HumaLOG INSULIN (NovoLOG) PER UNIT SC SCH (21:00)
[2021-08-17] MEDS: DOCUSATE SODIUM 100MG CAPSULE PO SCH (21:00)
[2021-08-17] MEDS: ATORVASTATIN 20 MG TAB PO SCH (22:51)
[2021-08-18] VITALS: BP 118/55
[2021-08-18] MEDS: PIPERACILLIN/TAZOBACTAM SOD 3.375 GM in D5W MINI-BAG PLUS 50 ML IV SCH ×4 (00:22→17:34)
[2021-08-18] MEDS: ACETAMINOPHEN TAB 650MG DOSE (2X325MG) PO PRN ×2 (01:58→13:14)
[2021-08-18] MEDS: VANCOMYCIN HCL 1,000 MG, VIAL MATE ADAPTER 1 EACH in NS 250 ML IV SCH ×2 (01:58→13:05)
[2021-08-18] MEDS ORDERED: VANCOMYCIN HCL 1,000 MG, VIAL MATE ADAPTER 1 EACH in NS 250 ML IV SCH (03:00)
[2021-08-18 04:00] VITALS: BP 141/60
[2021-08-18 04:57] LABS: BASO % 0.5 % (0.0-1.0); EOS # 0.3 10^3/uL (0.0-0.5); EOS % 4.4 % (0.0-3.0); HEMATOCRIT 30.9 % (42.0-52.0); HEMOGLOBIN 10.6 g/dl (13.5-17.5); LYMPH # 1.6 10^3/uL (1.5-5.0); LYMPH % 23.6 % (24.0-44.0); MEAN CORPUSCULAR HEMOGLOBIN 34.5 pg (27.0-33.0); MEAN CORPUSCULAR HGB CONC 34.3 g/dl (32.0-36.5); MEAN CORPUSCULAR VOLUME 100.7 fl (80.0-96.0); MONO # 0.9 10^3/uL (0.0-0.8); NEUTROPHILS # 3.8 10^3/uL (1.5-8.5); NEUTROPHILS % 57.2 % (36.0-66.0); RED BLOOD COUNT 3.07 10^6/uL (4.30-6.10); WHITE BLOOD COUNT 6.6 10^3/uL (4.0-10.0)
[2021-08-18 05:29] LABS: ALBUMIN 2.2 GM/DL (3.2-5.2); ALT/SGPT 53 U/L (12-78); BILIRUBIN,TOTAL 4.7 MG/DL (0.2-1.0); BLOOD UREA NITROGEN 10 MG/DL (7-18); CARBON DIOXIDE LEVEL 28 MEQ/L (21-32); CHLORIDE LEVEL 107 MEQ/L (98-107); CREATININE FOR GFR 0.64 MG/DL (0.70-1.30); GLOMERULAR FILTRATION RATE > 60.0 (>60); GLUCOSE, FASTING 90 MG/DL (70-100); POTASSIUM SERUM 3.4 MEQ/L (3.5-5.1); SODIUM LEVEL 139 MEQ/L (136-145); TOTAL PROTEIN 5.7 GM/DL (6.4-8.2)
[2021-08-18] MEDS ORDERED: POTASSIUM CHLORIDE 10MEQ SR TABLET PO ONE (07:15)
[2021-08-18] MEDS: HumaLOG INSULIN (NovoLOG) PER UNIT SC SCH ×4 (07:30→20:51)
[2021-08-18 08:00] VITALS: BP 140/60
[2021-08-18] MEDS ORDERED: ENOXAPARIN 40MG/0.4ML SYRINGE (J1650 PER 10MG) SC SCH (09:00)
[2021-08-18] MEDS ORDERED: SPIRONOLACTONE 25 MG TAB PO SCH (09:00)
[2021-08-18] MEDS: SPIRONOLACTONE 50 MG TAB PO SCH (10:59)
[2021-08-18] MEDS: FOLIC ACID 1 MG TAB PO SCH (10:59)
[2021-08-18] MEDS: THIAMINE 100 MG TAB PO SCH (11:00)
[2021-08-18] MEDS: DOCUSATE SODIUM 100MG CAPSULE PO SCH ×2 (11:00→20:53)
[2021-08-18] MEDS: OMEPRAZOLE 20MG CAP PO SCH (11:00)
[2021-08-18] MEDS: MULTIVITAMINS/MINERALS THERAP 1 TAB PO SCH (11:00)
[2021-08-18] MEDS: FUROSEMIDE 40MG/4ML VIAL (J1940) IV SCH ×2 (11:01→17:34)
[2021-08-18 12:02] VITALS: BP 138/62
[2021-08-18] MEDS: VANCOMYCIN HCL 750 MG, VIAL MATE ADAPTER 1 EACH in NS 250 ML IV SCH (19:18)
[2021-08-18 20:12] VITALS: BP 143/72
[2021-08-18] MEDS: ATORVASTATIN 20 MG TAB PO SCH (20:50)
[2021-08-18] MEDS: VANCOMYCIN HCL 500 MG in D5W MINI-BAG PLUS 100 ML IV SCH (20:51)
[2021-08-18 23:50] VITALS: BP 123/56
[2021-08-19] MEDS: PIPERACILLIN/TAZOBACTAM SOD 3.375 GM in D5W MINI-BAG PLUS 50 ML IV SCH ×3 (00:36→14:36)
[2021-08-19] MEDS: VANCOMYCIN HCL 750 MG, VIAL MATE ADAPTER 1 EACH in NS 250 ML IV SCH ×2 (03:16→12:09)
[2021-08-19 04:00] VITALS: BP 120/59
[2021-08-19] MEDS: VANCOMYCIN HCL 500 MG in D5W MINI-BAG PLUS 100 ML IV SCH ×2 (04:19→13:20)
[2021-08-19] MEDS ORDERED: POTASSIUM CHLORIDE 10MEQ SR TABLET PO ONE (05:30)
[2021-08-19] MEDS: HumaLOG INSULIN (NovoLOG) PER UNIT SC SCH ×4 (07:30→21:00)
[2021-08-19 07:36] LABS: BASO % 0.6 % (0.0-1.0); EOS # 0.4 10^3/uL (0.0-0.5); EOS % 4.8 % (0.0-3.0); HEMATOCRIT 33.1 % (42.0-52.0); HEMOGLOBIN 11.6 g/dl (13.5-17.5); LYMPH % 27.3 % (24.0-44.0); MEAN CORPUSCULAR HEMOGLOBIN 35.2 pg (27.0-33.0); MEAN CORPUSCULAR VOLUME 100.3 fl (80.0-96.0); MONO % 13.1 % (2.0-8.0); NEUTROPHILS # 3.9 10^3/uL (1.5-8.5); NEUTROPHILS % 53.9 % (36.0-66.0); WHITE BLOOD COUNT 7.3 10^3/uL (4.0-10.0)
[2021-08-19 07:59] LABS: ALBUMIN 2.5 GM/DL (3.2-5.2); ALT/SGPT 58 U/L (12-78); BILIRUBIN,TOTAL 5.1 MG/DL (0.2-1.0); BLOOD UREA NITROGEN 9 MG/DL (7-18); CARBON DIOXIDE LEVEL 28 MEQ/L (21-32); CHLORIDE LEVEL 105 MEQ/L (98-107); CREATININE FOR GFR 0.68 MG/DL (0.70-1.30); GLOMERULAR FILTRATION RATE > 60.0 (>60); GLUCOSE, FASTING 98 MG/DL (70-100); MAGNESIUM LEVEL 2.1 MG/DL (1.8-2.4); POTASSIUM SERUM 3.4 MEQ/L (3.5-5.1); SODIUM LEVEL 138 MEQ/L (136-145); TOTAL PROTEIN 6.4 GM/DL (6.4-8.2)
[2021-08-19 08:00] VITALS: BP 143/76
[2021-08-19 08:02] LABS: INR 1.4; PROTHROMBIN TIME 17.6 SECONDS (12.7-14.5)
[2021-08-19] MEDS: OMEPRAZOLE 20MG CAP PO SCH (09:37)
[2021-08-19] MEDS: FUROSEMIDE 40MG/4ML VIAL (J1940) IV SCH ×2 (09:37→18:00)
[2021-08-19] MEDS: DOCUSATE SODIUM 100MG CAPSULE PO SCH ×2 (09:38→21:21)
[2021-08-19] MEDS: MULTIVITAMINS/MINERALS THERAP 1 TAB PO SCH (09:38)
[2021-08-19] MEDS: SPIRONOLACTONE 50 MG TAB PO SCH ×2 (09:38→18:00)
[2021-08-19] MEDS: FOLIC ACID 1 MG TAB PO SCH (09:38)
[2021-08-19] MEDS: THIAMINE 100 MG TAB PO SCH (09:38)
[2021-08-19 12:00] VITALS: BP 144/67
[2021-08-19 13:27] LABS: APPEARANCE, BODY FLUID CLOUDY (CLEAR); PERITONEAL FL COLOR COLORLESS (COLORLESS); SOURCE, BODY FLUID PERITONEAL
[2021-08-19 13:41] LABS: LDH LACTATE DEHYDROGENASE 250 U/L (87-241)
[2021-08-19 14:18] LABS: SOURCE, BODY FLUID GLUCOSE PERITONEAL; SOURCE, BODY FLUID TOT PROTEIN PERITONEAL; TOTAL PROTEIN, BODY FLUID 0.8 G/DL (NOT ESTABLISHED)
[2021-08-19 14:48] LABS: SOURCE, BODY FLUID ALBUMIN PERITONEAL
[2021-08-19 14:57] LABS: BILIRUBIN,DIRECT 2.4 MG/DL (0.0-0.2)
[2021-08-19] MEDS: CIPROFLOXACIN 500MG TABLET PO SCH (15:55)
[2021-08-19 20:00] VITALS: BP 121/67
[2021-08-19] MEDS: ATORVASTATIN 20 MG TAB PO SCH (21:21)
[2021-08-19] MEDS: DOXYCYCLINE HYCLATE 100MG TABLET PO SCH (21:21)
[2021-08-19] MEDS ORDERED: ACETAMINOPHEN TAB 650MG DOSE (2X325MG) PO ONE (21:55)
[2021-08-20] MEDS: CIPROFLOXACIN 500MG TABLET PO SCH (05:45)
[2021-08-20 06:34] LABS: BASO % 0.5 % (0.0-1.0); EOS # 0.3 10^3/uL (0.0-0.5); EOS % 4.4 % (0.0-3.0); HEMATOCRIT 31.8 % (42.0-52.0); HEMOGLOBIN 10.9 g/dl (13.5-17.5); LYMPH # 1.9 10^3/uL (1.5-5.0); LYMPH % 31.2 % (24.0-44.0); MEAN CORPUSCULAR HEMOGLOBIN 34.3 pg (27.0-33.0); MEAN CORPUSCULAR HGB CONC 34.3 g/dl (32.0-36.5); MONO # 0.8 10^3/uL (0.0-0.8); MONO % 13.6 % (2.0-8.0); RED BLOOD COUNT 3.18 10^6/uL (4.30-6.10)
[2021-08-20 07:00] LABS: ALBUMIN 2.2 GM/DL (3.2-5.2); ALT/SGPT 54 U/L (12-78); BILIRUBIN,TOTAL 3.8 MG/DL (0.2-1.0); BLOOD UREA NITROGEN 9 MG/DL (7-18); CALCIUM LEVEL 7.8 MG/DL (8.5-10.1); CARBON DIOXIDE LEVEL 31 MEQ/L (21-32); CHLORIDE LEVEL 103 MEQ/L (98-107); CREATININE FOR GFR 0.64 MG/DL (0.70-1.30); GLOMERULAR FILTRATION RATE > 60.0 (>60); GLUCOSE, FASTING 95 MG/DL (70-100); MAGNESIUM LEVEL 1.9 MG/DL (1.8-2.4); POTASSIUM SERUM 3.1 MEQ/L (3.5-5.1); SODIUM LEVEL 137 MEQ/L (136-145); TOTAL PROTEIN 6.1 GM/DL (6.4-8.2)
[2021-08-20] MEDS: HumaLOG INSULIN (NovoLOG) PER UNIT SC SCH ×2 (07:30→12:00)
[2021-08-20] MEDS ORDERED: POTASSIUM CHLORIDE 10MEQ SR TABLET PO ONE (08:00)
[2021-08-20] MEDS: THIAMINE 100 MG TAB PO SCH (09:04)
[2021-08-20 09:05] VITALS: BP 128/60
[2021-08-20] MEDS: FUROSEMIDE 40MG/4ML VIAL (J1940) IV SCH (09:05)
[2021-08-20] MEDS: FOLIC ACID 1 MG TAB PO SCH (09:05)
[2021-08-20] MEDS: OMEPRAZOLE 20MG CAP PO SCH (09:05)
[2021-08-20] MEDS: SPIRONOLACTONE 50 MG TAB PO SCH (09:05)
[2021-08-20] MEDS: DOCUSATE SODIUM 100MG CAPSULE PO SCH (09:06)
[2021-08-20] MEDS: DOXYCYCLINE HYCLATE 100MG TABLET PO SCH (09:06)
[2021-08-20 09:29] LABS: PLTBLUE- EDTA FREE MACHINE 61 10^3/uL (172-450)
[2021-08-20 10:26] LABS: PLTBLUE- EDTA FREE CALC 67 K/mm3 (172-450)
[2021-08-20] MEDS ORDERED: THIA100TA PO (10:39)
[2021-08-20] MEDS ORDERED: VITMTA PO (10:39)
[2021-08-20] MEDS ORDERED: DOXY100T PO (10:39)
[2021-08-20] MEDS ORDERED: CIPR-249 PO (10:39)
[2021-08-20] MEDS ORDERED: FURO20TA2 PO (10:39)
[2021-08-20] MEDS ORDERED: SPIR50TA4 PO (10:39)
[2021-08-20] MEDS ORDERED: MULTIVITAMINS/MINERALS THERAP 1 TAB PO SCH (12:00)
[2021-08-20 12:06] VITALS: BP_SYST 118; BP_SYST 125; BP_DIAS 56; BP_DIAS 75
== END 2021-08-20 13:07 | disposition home or self-care (01) | DRG 433 ==
LOC: M ED 10:30 → EEVIPCON 17:33 → M ED INP 17:33 → M PCU 20:10
PROVIDERS: ADMIT Internal Medicine; ATTEND Internal Medicine
PROC: 0W9G3ZZ Drainage of Peritoneal Cavity, Percutaneous Approach (ICD-10-PCS; principal; 2021-08-19 15:00)
DX: K70.31 Alcoholic cirrhosis of liver with ascites (principal); Z68.42 Body mass index [BMI] 45.0-49.9, adult; N50.89 Other specified disorders of the male genital organs; I10 Essential (primary) hypertension; E11.9 Type 2 diabetes mellitus without complications; E78.5 Hyperlipidemia, unspecified; J30.9 Allergic rhinitis, unspecified; E66.01 Morbid (severe) obesity due to excess calories; N49.2 Inflammatory disorders of scrotum; F17.200 Nicotine dependence, unspecified, uncomplicated; I16.0 Hypertensive urgency; D53.9 Nutritional anemia, unspecified; F10.20 Alcohol dependence, uncomplicated; D69.6 Thrombocytopenia, unspecified; K21.9 Gastro-esophageal reflux disease without esophagitis; Z79.84 Long term (current) use of oral hypoglycemic drugs; Z79.899 Other long term (current) drug therapy; Z88.8 Allergy status to other drugs, medicaments and biological substances

== ENCOUNTER → 2021-08-31 | Outpatient (CLI) | payer OTHER ==
[~2021-08-31] MED LIST changes: +CIPR-249 PO; +DOXY100T PO; +GLIP5TAB8 PO; +THIA100TA PO; +VITMTA PO
[2021-08-31 15:20] VITALS: BP 136/54
== END ==
LOC: M RAD 13:32
PROVIDERS: ATTEND Family Medicine
DX: K74.60 Unspecified cirrhosis of liver (principal); R18.8 Other ascites; H53.9 Unspecified visual disturbance

== ENCOUNTER → 2021-09-08 | Outpatient (CLI) | payer OTHER ==
[~2021-09-08] MED LIST changes: +THIA100T7 PO
[2021-09-08 15:36] VITALS: BP 144/57
== END ==
LOC: M IRPRO 13:58
PROVIDERS: ATTEND Family Medicine
DX: K74.60 Unspecified cirrhosis of liver (principal)

== ENCOUNTER 2021-09-14 19:23 | Inpatient (IN) | payer OTHER ==
[~2021-09-14] VITALS: Ht 188 cm; Wt 172.7 kg
[~2021-09-14 19:23] MED LIST changes: -THIA100T7 PO
[2021-09-14 20:59] LABS: ALBUMIN 2.3 GM/DL (3.2-5.2); ALT/SGPT 70 U/L (12-78); BILIRUBIN,DIRECT 1.7 MG/DL (0.0-0.2); BLOOD UREA NITROGEN 15 MG/DL (7-18); CALCIUM LEVEL 8.3 MG/DL (8.5-10.1); CARBON DIOXIDE LEVEL 26 MEQ/L (21-32); CHLORIDE LEVEL 100 MEQ/L (98-107); GLOMERULAR FILTRATION RATE > 60.0 (>56); GLUCOSE, FASTING 138 MG/DL (70-100); POTASSIUM SERUM 5.3 MEQ/L (3.5-5.1); SODIUM LEVEL 131 MEQ/L (136-145); TOTAL PROTEIN 6.6 GM/DL (6.4-8.2)
[2021-09-14] MEDS: HumaLOG INSULIN (NovoLOG) PER UNIT SC SCH (21:00)
[2021-09-14 21:14] LABS: NT-PRO BNP 121 PG/ML (<125)
[2021-09-14 21:17] LABS: BASO # 0.1 10^3/uL (0.0-0.2); BASO % 0.7 % (0.0-1.0); EOS # 0.3 10^3/uL (0.0-0.5); HEMATOCRIT 32.9 % (42.0-52.0); HEMOGLOBIN 11.4 g/dl (13.5-17.5); LYMPH # 1.5 10^3/uL (1.5-5.0); LYMPH % 17.4 % (24.0-44.0); MEAN CORPUSCULAR HEMOGLOBIN 35.1 pg (27.0-33.0); MEAN CORPUSCULAR HGB CONC 34.7 g/dl (32.0-36.5); MEAN CORPUSCULAR VOLUME 101.2 fl (80.0-96.0); MONO # 1.3 10^3/uL (0.0-0.8); MONO % 15.1 % (2.0-8.0); NEUTROPHILS # 5.6 10^3/uL (1.5-8.5); NEUTROPHILS % 63.2 % (36.0-66.0); RED BLOOD COUNT 3.25 10^6/uL (4.30-6.10); WHITE BLOOD COUNT 8.8 10^3/uL (4.0-10.0)
[2021-09-14] MEDS ORDERED: VITMTA PO (23:34)
[2021-09-14] MEDS ORDERED: THIA100T7 PO (23:34)
[2021-09-14] MEDS ORDERED: FURO20TA2 PO (23:34)
[2021-09-14] MEDS ORDERED: SPIR50TA4 PO (23:34)
[2021-09-14] MEDS ORDERED: SOD POLYSTYRENE SULFONATE SUSP 15 GM/60 ML UD PO ONE (23:35)
[2021-09-14] MEDS ORDERED: HOME MED LIST COMPLETE! XX SCH (23:35)
[2021-09-15] MEDS ORDERED: GLUCOSE 4GM CHEW TABLET PO PRN (00:15)
[2021-09-15] MEDS ORDERED: DEXTROSE 50% 50 ML SYRINGE IV PRN (00:15)
[2021-09-15] MEDS ORDERED: GLUCAGON INJ 1MG VIAL SC PRN (00:15)
[2021-09-15 00:59] LABS: RSV AMPLIFICATION NEGATIVE (NEGATIVE)
[2021-09-15 03:13] VITALS: BP 145/67
[2021-09-15 06:28] LABS: HEMOGLOBIN 10.5 g/dl (13.5-17.5); MEAN CORPUSCULAR HEMOGLOBIN 35.1 pg (27.0-33.0); MEAN CORPUSCULAR VOLUME 100.3 fl (80.0-96.0); PLTBLUE- EDTA FREE CALC 90 K/mm3 (172-450); PLTBLUE- EDTA FREE MACHINE 82 10^3/uL (172-450); RED BLOOD COUNT 2.99 10^6/uL (4.30-6.10); WHITE BLOOD COUNT 7.2 10^3/uL (4.0-10.0)
[2021-09-15 06:54] LABS: ALBUMIN 2.2 GM/DL (3.2-5.2); ALT/SGPT 61 U/L (12-78); BILIRUBIN,TOTAL 5.6 MG/DL (0.2-1.0); BLOOD UREA NITROGEN 14 MG/DL (7-18); CALCIUM LEVEL 8.4 MG/DL (8.5-10.1); CARBON DIOXIDE LEVEL 27 MEQ/L (21-32); CHLORIDE LEVEL 101 MEQ/L (98-107); CREATININE FOR GFR 0.68 MG/DL (0.70-1.30); GLOMERULAR FILTRATION RATE > 60.0 (>56); GLUCOSE, FASTING 139 MG/DL (70-100); MAGNESIUM LEVEL 1.9 MG/DL (1.8-2.4); PHOSPHORUS LEVEL 3.3 MG/DL (2.5-4.9); SODIUM LEVEL 135 MEQ/L (136-145)
[2021-09-15] MEDS: OMEPRAZOLE 20MG CAP PO SCH (08:18)
[2021-09-15] MEDS: MULTIVITAMINS/MINERALS THERAP 1 TAB PO SCH (08:18)
[2021-09-15] MEDS: SPIRONOLACTONE 50 MG TAB PO SCH (08:19)
[2021-09-15] MEDS: FUROSEMIDE 40 MG TAB PO SCH ×2 (08:19→16:54)
[2021-09-15] MEDS: HumaLOG INSULIN (NovoLOG) PER UNIT SC SCH ×4 (08:20→21:00)
[2021-09-15] MEDS: NICOTINE 21MG/24HR 1 EA TRANSDERMAL TD SCH (08:20)
[2021-09-15] MEDS ORDERED: HEPARIN SOD (PORCINE) 5000UNITS/ML 1ML VIAL/SYRINGE SQ SCH (09:00)
[2021-09-15 10:59] LABS: LDH LACTATE DEHYDROGENASE 237 U/L (87-241)
[2021-09-15 12:18] VITALS: BP 146/78
[2021-09-15 12:24] LABS: PH BODY FLUID 7.647 UNITS (NOT ESTABLISHED); SOURCE, BODY FLUID pH PLEURAL
[2021-09-15 12:54] LABS: AMYLASE, BODY FLUID 17 U/L (NOT ESTABLISHED); CHOLESTEROL, BODY FLUID < 50 MG/DL (NOT ESTABLISHED); LDH, BODY FLUID 110 U/L (NOT ESTABLISHED); SOURCE, BODY FLUID ALBUMIN PLEURAL; SOURCE, BODY FLUID AMYLASE PLEURAL; SOURCE, BODY FLUID CHOL PLEURAL; SOURCE, BODY FLUID GLUCOSE PLEURAL; SOURCE, BODY FLUID LDH PLEURAL; SOURCE, BODY FLUID TOT PROTEIN PLEURAL; SOURCE, BODY FLUID TRIG PLEURAL; TOTAL PROTEIN, BODY FLUID 1.1 G/DL (NOT ESTABLISHED); TRIGLYCERIDE, BODY FLUID 21 MG/DL (NOT ESTABLISHED)
[2021-09-15 12:58] LABS: APPEARANCE, BODY FLUID CLOUDY (CLEAR); PLEURAL FL COLOR RED (COLORLESS); SOURCE, BODY FLUID PLEURAL
[2021-09-15 13:45] VITALS: BP 137/76
[2021-09-15 14:15] VITALS: BP 121/65
[2021-09-15] MEDS: oxyCODONE 5MG TAB PO PRN ×2 (16:54→23:45)
[2021-09-15 18:00] VITALS: BP 125/71
[2021-09-15] MEDS ORDERED: ISOVUE-370 76% 100ML VIAL As Ordered ONE (20:48)
[2021-09-15] MEDS: THIAMINE 100 MG TAB PO SCH (22:28)
[2021-09-15] MEDS: FOLIC ACID 1 MG TAB PO SCH (22:28)
[2021-09-16 06:00] VITALS: BP 126/67
[2021-09-16 06:20] LABS: BASO # 0.1 10^3/uL (0.0-0.2); BASO % 0.7 % (0.0-1.0); EOS # 0.3 10^3/uL (0.0-0.5); EOS % 3.8 % (0.0-3.0); HEMATOCRIT 28.7 % (42.0-52.0); HEMOGLOBIN 10.3 g/dl (13.5-17.5); LYMPH # 1.8 10^3/uL (1.5-5.0); LYMPH % 25.5 % (24.0-44.0); MEAN CORPUSCULAR HEMOGLOBIN 36.1 pg (27.0-33.0); MEAN CORPUSCULAR HGB CONC 35.9 g/dl (32.0-36.5); MEAN CORPUSCULAR VOLUME 100.7 fl (80.0-96.0); MONO # 1.2 10^3/uL (0.0-0.8); MONO % 17.2 % (2.0-8.0); NEUTROPHILS # 3.8 10^3/uL (1.5-8.5); NEUTROPHILS % 52.4 % (36.0-66.0); RED BLOOD COUNT 2.85 10^6/uL (4.30-6.10); WHITE BLOOD COUNT 7.2 10^3/uL (4.0-10.0)
[2021-09-16 06:53] LABS: ALBUMIN 2.1 GM/DL (3.2-5.2); ALT/SGPT 60 U/L (12-78); BILIRUBIN,TOTAL 4.5 MG/DL (0.2-1.0); BLOOD UREA NITROGEN 10 MG/DL (7-18); CALCIUM LEVEL 7.7 MG/DL (8.5-10.1); CARBON DIOXIDE LEVEL 29 MEQ/L (21-32); CHLORIDE LEVEL 101 MEQ/L (98-107); CREATININE FOR GFR 0.64 MG/DL (0.70-1.30); GLOMERULAR FILTRATION RATE > 60.0 (>56); GLUCOSE, FASTING 96 MG/DL (70-100); LDH LACTATE DEHYDROGENASE 219 U/L (87-241); MAGNESIUM LEVEL 1.7 MG/DL (1.8-2.4); POTASSIUM SERUM 3.6 MEQ/L (3.5-5.1); SODIUM LEVEL 134 MEQ/L (136-145); TOTAL PROTEIN 5.5 GM/DL (6.4-8.2)
[2021-09-16] MEDS: HumaLOG INSULIN (NovoLOG) PER UNIT SC SCH ×4 (07:07→20:10)
[2021-09-16] MEDS: FUROSEMIDE 40 MG TAB PO SCH ×2 (07:33→17:37)
[2021-09-16] MEDS: NICOTINE 21MG/24HR 1 EA TRANSDERMAL TD SCH (07:34)
[2021-09-16] MEDS: OMEPRAZOLE 20MG CAP PO SCH (07:34)
[2021-09-16] MEDS: MULTIVITAMINS/MINERALS THERAP 1 TAB PO SCH (07:34)
[2021-09-16] MEDS: SPIRONOLACTONE 50 MG TAB PO SCH (07:34)
[2021-09-16] MEDS ORDERED: LORazepam 2 MG TAB PO PRN (07:40)
[2021-09-16 08:33] LABS: PLTBLUE- EDTA FREE CALC 85 K/mm3 (172-450); PLTBLUE- EDTA FREE MACHINE 77 10^3/uL (172-450)
[2021-09-16 08:54] VITALS: BP 126/67
[2021-09-16 14:00] VITALS: BP 115/57
[2021-09-16 15:49] LABS: APPEARANCE, BODY FLUID HAZY (CLEAR); ASCITES FL COLOR AMBER (COLORLESS); SOURCE, BODY FLUID ASCITES
[2021-09-16 15:58] LABS: SPEC. GRAVITY BODY FLUIDS 1.009 (NOT ESTABLISHED)
[2021-09-16 16:19] LABS: SOURCE, BODY FLUID ALBUMIN ASCITES; SOURCE, BODY FLUID GLUCOSE ASCITES; SOURCE, BODY FLUID TOT PROTEIN ASCITES; TOTAL PROTEIN, BODY FLUID 0.6 G/DL (NOT ESTABLISHED)
[2021-09-16 16:33] VITALS: BP 134/71
[2021-09-16 19:20] VITALS: BP 123/58
[2021-09-16] MEDS: FOLIC ACID 1 MG TAB PO SCH (20:09)
[2021-09-16] MEDS: THIAMINE 100 MG TAB PO SCH (20:09)
[2021-09-16] MEDS: oxyCODONE 5MG TAB PO PRN (20:13)
[2021-09-17 00:09] VITALS: BP 122/58
[2021-09-17] MEDS: oxyCODONE 5MG TAB PO PRN (02:59)
[2021-09-17 06:00] VITALS: BP 119/59
[2021-09-17 06:54] LABS: BASO # 0.1 10^3/uL (0.0-0.2); BASO % 0.8 % (0.0-1.0); EOS # 0.3 10^3/uL (0.0-0.5); HEMATOCRIT 28.7 % (42.0-52.0); HEMOGLOBIN 10.1 g/dl (13.5-17.5); LYMPH # 1.7 10^3/uL (1.5-5.0); LYMPH % 25.9 % (24.0-44.0); MEAN CORPUSCULAR HEMOGLOBIN 35.8 pg (27.0-33.0); MEAN CORPUSCULAR HGB CONC 35.2 g/dl (32.0-36.5); MEAN CORPUSCULAR VOLUME 101.8 fl (80.0-96.0); MONO % 16.2 % (2.0-8.0); NEUTROPHILS # 3.3 10^3/uL (1.5-8.5); NEUTROPHILS % 51.5 % (36.0-66.0); RED BLOOD COUNT 2.82 10^6/uL (4.30-6.10); WHITE BLOOD COUNT 6.4 10^3/uL (4.0-10.0)
[2021-09-17 07:32] LABS: ALBUMIN 1.9 GM/DL (3.2-5.2); ALT/SGPT 55 U/L (12-78); BILIRUBIN,TOTAL 3.8 MG/DL (0.2-1.0); BLOOD UREA NITROGEN 8 MG/DL (7-18); CALCIUM LEVEL 7.3 MG/DL (8.5-10.1); CARBON DIOXIDE LEVEL 28 MEQ/L (21-32); CHLORIDE LEVEL 100 MEQ/L (98-107); CREATININE FOR GFR 0.62 MG/DL (0.70-1.30); GLOMERULAR FILTRATION RATE > 60.0 (>56); GLUCOSE, FASTING 148 MG/DL (70-100); MAGNESIUM LEVEL 1.8 MG/DL (1.8-2.4); POTASSIUM SERUM 3.3 MEQ/L (3.5-5.1); SODIUM LEVEL 133 MEQ/L (136-145); TOTAL PROTEIN 5.1 GM/DL (6.4-8.2)
[2021-09-17] MEDS ORDERED: POTASSIUM CHLORIDE 10MEQ SR TABLET PO ONE (08:30)
[2021-09-17] MEDS: HumaLOG INSULIN (NovoLOG) PER UNIT SC SCH ×3 (08:47→17:30)
[2021-09-17] MEDS: OMEPRAZOLE 20MG CAP PO SCH (08:48)
[2021-09-17] MEDS: MULTIVITAMINS/MINERALS THERAP 1 TAB PO SCH (08:48)
[2021-09-17] MEDS: SPIRONOLACTONE 50 MG TAB PO SCH (08:49)
[2021-09-17] MEDS: FUROSEMIDE 40 MG TAB PO SCH ×2 (08:49→17:59)
[2021-09-17] MEDS: NICOTINE 21MG/24HR 1 EA TRANSDERMAL TD SCH (08:55)
[2021-09-17] MEDS ORDERED: BACTDSTA PO (10:19)
[2021-09-17] MEDS ORDERED: ALDA50TA2 PO (10:19)
[2021-09-17 13:06] VITALS: BP 118/60
[2021-09-17 14:06] VITALS: BP 118/59
[2021-09-17 15:05] VITALS: BP 119/58
[2021-09-17 16:05] VITALS: BP 120/59
== END 2021-09-17 18:11 | disposition home or self-care (01) | DRG 433 ==
LOC: M ED 19:23 → M ED INP 23:02 → ENRESERV 09-15 01:26 → M MSPAV 09-15 03:07
PROVIDERS: ADMIT Internal Medicine; ATTEND Family Medicine
DX: K70.31 Alcoholic cirrhosis of liver with ascites (principal); J90 Pleural effusion, not elsewhere classified; R04.2 Hemoptysis; E87.1 Hypo-osmolality and hyponatremia; K76.6 Portal hypertension; Z68.42 Body mass index [BMI] 45.0-49.9, adult; F10.20 Alcohol dependence, uncomplicated; I10 Essential (primary) hypertension; E11.9 Type 2 diabetes mellitus without complications; E78.5 Hyperlipidemia, unspecified; F17.210 Nicotine dependence, cigarettes, uncomplicated; E66.01 Morbid (severe) obesity due to excess calories; J30.9 Allergic rhinitis, unspecified; D69.6 Thrombocytopenia, unspecified; E87.5 Hyperkalemia; K21.9 Gastro-esophageal reflux disease without esophagitis; Z79.84 Long term (current) use of oral hypoglycemic drugs; Z79.899 Other long term (current) drug therapy; Z88.8 Allergy status to other drugs, medicaments and biological substances

== ENCOUNTER → 2021-09-14 | Outpatient (CLI) | payer OTHER ==
[2021-09-14 16:24] LABS: HEMATOCRIT 34.1 % (42.0-52.0); MEAN CORPUSCULAR HEMOGLOBIN 35.8 pg (27.0-33.0); MEAN CORPUSCULAR HGB CONC 35.2 g/dl (32.0-36.5); MEAN CORPUSCULAR VOLUME 101.8 fl (80.0-96.0); RED BLOOD COUNT 3.35 10^6/uL (4.30-6.10); WHITE BLOOD COUNT 9.5 10^3/uL (4.0-10.0)
[2021-09-14 16:43] LABS: ALBUMIN 2.7 GM/DL (3.2-5.2); ALT/SGPT 69 U/L (12-78); BILIRUBIN,DIRECT 2.9 MG/DL (0.0-0.2); BLOOD UREA NITROGEN 15 MG/DL (7-18); CALCIUM LEVEL 8.9 MG/DL (8.5-10.1); CARBON DIOXIDE LEVEL 27 MEQ/L (21-32); CHLORIDE LEVEL 100 MEQ/L (98-107); CREATININE FOR GFR 0.78 MG/DL (0.70-1.30); GLOMERULAR FILTRATION RATE > 60.0 (>56); GLUCOSE, FASTING 116 MG/DL (70-100); MAGNESIUM LEVEL 1.8 MG/DL (1.8-2.4); PHOSPHORUS LEVEL 3.7 MG/DL (2.5-4.9); POTASSIUM SERUM 4.2 MEQ/L (3.5-5.1); SODIUM LEVEL 133 MEQ/L (136-145); TOTAL PROTEIN 6.9 GM/DL (6.4-8.2)
[2021-09-14 16:44] LABS: SODIUM,RANDOM URINE < 10 MEQ/L
== END ==
LOC: M LAB 14:28
PROVIDERS: ATTEND Internal Medicine Gastroenterology
DX: K74.60 Unspecified cirrhosis of liver (principal); R18.8 Other ascites

== ENCOUNTER → 2021-09-14 | Outpatient (CLI) | payer OTHER ==
[2021-09-14 16:25] LABS: BASO # 0.1 10^3/uL (0.0-0.2); BASO % 0.8 % (0.0-1.0); EOS # 0.2 10^3/uL (0.0-0.5); EOS % 2.3 % (0.0-3.0); HEMATOCRIT 32.7 % (42.0-52.0); HEMOGLOBIN 11.7 g/dl (13.5-17.5); LYMPH # 1.7 10^3/uL (1.5-5.0); LYMPH % 18.1 % (24.0-44.0); MEAN CORPUSCULAR HEMOGLOBIN 35.8 pg (27.0-33.0); MEAN CORPUSCULAR HGB CONC 35.8 g/dl (32.0-36.5); MONO # 1.2 10^3/uL (0.0-0.8); MONO % 13.2 % (2.0-8.0); NEUTROPHILS % 65.1 % (36.0-66.0); RED BLOOD COUNT 3.27 10^6/uL (4.30-6.10); WHITE BLOOD COUNT 9.3 10^3/uL (4.0-10.0)
[2021-09-14 16:41] LABS: INR 1.4; PROTHROMBIN TIME 17.6 SECONDS (12.7-14.5)
[2021-09-14 16:43] LABS: ALBUMIN 2.7 GM/DL (3.2-5.2); ALT/SGPT 72 U/L (12-78); BILIRUBIN,TOTAL 7.2 MG/DL (0.2-1.0); BLOOD UREA NITROGEN 14 MG/DL (7-18); CARBON DIOXIDE LEVEL 28 MEQ/L (21-32); CHLORIDE LEVEL 101 MEQ/L (98-107); CREATININE FOR GFR 0.79 MG/DL (0.70-1.30); GLOMERULAR FILTRATION RATE > 60.0 (>56); GLUCOSE, FASTING 117 MG/DL (70-100); POTASSIUM SERUM 4.2 MEQ/L (3.5-5.1); SODIUM LEVEL 134 MEQ/L (136-145); TOTAL PROTEIN 6.9 GM/DL (6.4-8.2)
== END ==
LOC: M RAD 14:22
PROVIDERS: ATTEND Family Medicine
DX: R06.02 Shortness of breath (principal); K74.60 Unspecified cirrhosis of liver; J91.8 Pleural effusion in other conditions classified elsewhere; J84.89 Other specified interstitial pulmonary diseases

== ENCOUNTER → 2021-09-23 | Outpatient (CLI) | payer OTHER ==
[~2021-09-23] MED LIST changes: +ALDA50TA2 PO; +BACTDSTA PO; +THIA100T7 PO
[2021-09-23 13:51] LABS: ALBUMIN 2.5 GM/DL (3.2-5.2); ALT/SGPT 61 U/L (12-78); BILIRUBIN,TOTAL 5.4 MG/DL (0.2-1.0); BLOOD UREA NITROGEN 10 MG/DL (7-18); CALCIUM LEVEL 8.6 MG/DL (8.5-10.1); CARBON DIOXIDE LEVEL 29 MEQ/L (21-32); CHLORIDE LEVEL 100 MEQ/L (98-107); CREATININE FOR GFR 0.71 MG/DL (0.70-1.30); GLOMERULAR FILTRATION RATE > 60.0 (>56); GLUCOSE, FASTING 115 MG/DL (70-100); POTASSIUM SERUM 3.6 MEQ/L (3.5-5.1); SODIUM LEVEL 133 MEQ/L (136-145); TOTAL PROTEIN 6.8 GM/DL (6.4-8.2)
[2021-09-23 14:41] VITALS: BP 144/76
== END ==
LOC: M IRPRO 12:21
PROVIDERS: ATTEND Family Medicine
DX: K74.60 Unspecified cirrhosis of liver (principal); E87.6 Hypokalemia; J90 Pleural effusion, not elsewhere classified; R07.81 Pleurodynia

== ENCOUNTER 2021-09-25 09:22 | Emergency (ER) | payer OTHER ==
[~2021-09-25] VITALS: Ht 188 cm; Wt 168.2 kg
[2021-09-25 10:11] LABS: BASO # 0.1 10^3/uL (0.0-0.2); BASO % 0.6 % (0.0-1.0); EOS # 0.2 10^3/uL (0.0-0.5); EOS % 2.1 % (0.0-3.0); HEMATOCRIT 32.9 % (42.0-52.0); HEMOGLOBIN 11.8 g/dl (13.5-17.5); LYMPH # 1.5 10^3/uL (1.5-5.0); LYMPH % 13.2 % (24.0-44.0); MEAN CORPUSCULAR HEMOGLOBIN 36.2 pg (27.0-33.0); MEAN CORPUSCULAR HGB CONC 35.9 g/dl (32.0-36.5); MEAN CORPUSCULAR VOLUME 100.9 fl (80.0-96.0); MONO # 1.2 10^3/uL (0.0-0.8); NEUTROPHILS # 7.9 10^3/uL (1.5-8.5); NEUTROPHILS % 71.7 % (36.0-66.0); RED BLOOD COUNT 3.26 10^6/uL (4.30-6.10)
[2021-09-25 10:48] LABS: ALBUMIN 2.6 GM/DL (3.2-5.2); ALT/SGPT 61 U/L (12-78); BILIRUBIN,DIRECT 1.9 MG/DL (0.0-0.2); BLOOD UREA NITROGEN 15 MG/DL (7-18); CALCIUM LEVEL 8.4 MG/DL (8.5-10.1); CARBON DIOXIDE LEVEL 22 MEQ/L (21-32); CHLORIDE LEVEL 96 MEQ/L (98-107); CREATININE FOR GFR 0.94 MG/DL (0.70-1.30); GLOMERULAR FILTRATION RATE > 60.0 (>56); GLUCOSE, FASTING 116 MG/DL (70-100); POTASSIUM SERUM 4.1 MEQ/L (3.5-5.1); SODIUM LEVEL 129 MEQ/L (136-145); TOTAL PROTEIN 6.5 GM/DL (6.4-8.2)
[2021-09-25 10:57] LABS: INR 1.52; PROTHROMBIN TIME 18.7 SECONDS (12.7-14.5)
[2021-09-25 13:30] VITALS: BP 120/51
[2021-11-06] MEDS ORDERED: TORS5TAB2 PO (11:27)
[2021-11-06] MEDS ORDERED: SPIR-10 PO (11:27)
== END 2021-09-25 13:40 | disposition home or self-care (01) ==
LOC: M ED 09:22
DX: K70.30 Alcoholic cirrhosis of liver without ascites (principal); I10 Essential (primary) hypertension; E11.9 Type 2 diabetes mellitus without complications; E78.5 Hyperlipidemia, unspecified; F10.10 Alcohol abuse, uncomplicated; Z79.899 Other long term (current) drug therapy; Z79.84 Long term (current) use of oral hypoglycemic drugs; Z88.8 Allergy status to other drugs, medicaments and biological substances; F17.210 Nicotine dependence, cigarettes, uncomplicated

== ENCOUNTER → 2021-09-30 | Outpatient (CLI) | payer OTHER ==
[2021-09-30 14:41] VITALS: BP 109/46
== END ==
LOC: M IRPRO 13:23
PROVIDERS: ATTEND Family Medicine
DX: K74.60 Unspecified cirrhosis of liver (principal)

== ENCOUNTER → 2021-10-07 | Outpatient (CLI) | payer OTHER ==
[2021-10-07 14:12] VITALS: BP 136/61
[2021-10-07 14:24] VITALS: BP 171/80
[2021-10-07 14:31] VITALS: BP 163/78
[2021-10-07 14:42] VITALS: BP 168/81
[2021-10-07 14:52] VITALS: BP 164/71
== END ==
LOC: M IRPRO 13:32
PROVIDERS: ATTEND Family Medicine
DX: K74.60 Unspecified cirrhosis of liver (principal)
CPT/HCPCS: 49083; 96365; P9047

== ENCOUNTER → 2021-10-14 | Outpatient (CLI) | payer OTHER ==
[2021-10-14 14:28] VITALS: BP 132/59
[2021-10-14 14:42] VITALS: BP 139/59
[2021-10-14 14:59] VITALS: BP 142/61
== END ==
LOC: M IRPRO 13:24
PROVIDERS: ATTEND Family Medicine
DX: K74.60 Unspecified cirrhosis of liver (principal)
CPT/HCPCS: 49083; 96365; P9047

== ENCOUNTER → 2021-10-20 | Outpatient (CLI) | payer OTHER ==
[2021-10-20 09:43] VITALS: BP 149/62
[2021-10-20 09:48] VITALS: BP 131/63
[2021-10-20 09:59] VITALS: BP 124/56
[2021-10-20 10:10] VITALS: BP 139/60
== END ==
LOC: M IRPRO 08:20
PROVIDERS: ATTEND Family Medicine
DX: K74.60 Unspecified cirrhosis of liver (principal)
CPT/HCPCS: 49083; 96365; P9047

== ENCOUNTER → 2021-10-26 | Outpatient (CLI) | payer OTHER ==
[2021-10-26 14:40] VITALS: BP 121/58
[2021-10-26 14:51] VITALS: BP 119/58
[2021-10-26 14:59] VITALS: BP 123/58
== END ==
LOC: M IRPRO 13:15
PROVIDERS: ATTEND Family Medicine
DX: K74.60 Unspecified cirrhosis of liver (principal)
CPT/HCPCS: 49083; 96365; P9047

== ENCOUNTER → 2021-10-28 | Outpatient (CLI) | payer OTHER ==
[2021-10-28 14:43] LABS: INR 1.53; PROTHROMBIN TIME 18.8 SECONDS (12.7-14.5)
[2021-10-28 14:44] LABS: PARTIAL THROMBOPLASTIN TIME 42.1 SECONDS (25.9-37.0)
[2021-10-28 14:56] LABS: ALBUMIN 2.7 GM/DL (3.2-5.2); BILIRUBIN,DIRECT 1.5 MG/DL (0.0-0.2); BILIRUBIN,TOTAL 3.3 MG/DL (0.2-1.0); CALCIUM LEVEL 8.9 MG/DL (8.5-10.1); CREATININE FOR GFR 1.72 MG/DL (0.70-1.30); MAGNESIUM LEVEL 2.3 MG/DL (1.8-2.4); PHOSPHORUS LEVEL 4.4 MG/DL (2.5-4.9); POTASSIUM SERUM 4.9 MEQ/L (3.5-5.1); TOTAL PROTEIN 6.2 GM/DL (6.4-8.2)
[2021-10-28 15:04] LABS: BASO # 0.1 10^3/uL (0.0-0.2); BASO % 0.7 % (0.0-1.0); EOS # 0.3 10^3/uL (0.0-0.5); EOS % 3.1 % (0.0-3.0); HEMATOCRIT 24.9 % (42.0-52.0); HEMOGLOBIN 9.2 g/dl (13.5-17.5); LYMPH # 1.7 10^3/uL (1.5-5.0); LYMPH % 19.5 % (24.0-44.0); MEAN CORPUSCULAR HEMOGLOBIN 34.7 pg (27.0-33.0); MONO # 1.5 10^3/uL (0.0-0.8); MONO % 16.4 % (2.0-8.0); NEUTROPHILS # 5.3 10^3/uL (1.5-8.5); NEUTROPHILS % 59.2 % (36.0-66.0); RED BLOOD COUNT 2.65 10^6/uL (4.30-6.10); WHITE BLOOD COUNT 8.9 10^3/uL (4.0-10.0)
[2021-10-28 15:04] LABS: SODIUM,RANDOM URINE < 10 MEQ/L
[2021-10-28 15:32] LABS: MEAN CORPUSCULAR HGB CONC 36.9 g/dl (32.0-36.5)
== END ==
LOC: M LAB 13:42
PROVIDERS: ATTEND Internal Medicine Gastroenterology
DX: K74.60 Unspecified cirrhosis of liver (principal)

== ENCOUNTER → 2021-10-30 | Outpatient (CLI) | payer OTHER | LOC: M RAD 06:24 | PROVIDERS: ATTEND Internal Medicine Gastroenterology | DX: K74.60 Unspecified cirrhosis of liver (principal); R18.8 Other ascites; R16.1 Splenomegaly, not elsewhere classified; J90 Pleural effusion, not elsewhere classified ==

== ENCOUNTER → 2021-11-03 | Outpatient (CLI) | payer OTHER ==
[2021-11-03 09:22] VITALS: BP 139/63
[2021-11-03 09:26] VITALS: BP 147/61
[2021-11-03 09:32] VITALS: BP 147/62
[2021-11-03 09:40] VITALS: BP 143/61
== END ==
LOC: M IRPRO 08:01
PROVIDERS: ATTEND Family Medicine
DX: K74.60 Unspecified cirrhosis of liver (principal)
CPT/HCPCS: 49083; 96365; P9047

== ENCOUNTER → 2021-11-05 | Outpatient (CLI) | payer OTHER ==
[~2021-11-05] MED LIST changes: +SPIR-10; +TORS5TAB2
[2021-11-05 10:44] LABS: BLOOD UREA NITROGEN 22 MG/DL (7-18); CALCIUM LEVEL 8.7 MG/DL (8.5-10.1); CARBON DIOXIDE LEVEL 22 MEQ/L (21-32); CHLORIDE LEVEL 103 MEQ/L (98-107); GLOMERULAR FILTRATION RATE > 60.0 (>56); GLUCOSE, FASTING 123 MG/DL (70-100); MAGNESIUM LEVEL 2.4 MG/DL (1.8-2.4); PHOSPHORUS LEVEL 3.7 MG/DL (2.5-4.9); POTASSIUM SERUM 4.9 MEQ/L (3.5-5.1); SODIUM LEVEL 131 MEQ/L (136-145)
== END ==
LOC: M LAB 09:16
PROVIDERS: ATTEND Internal Medicine Gastroenterology
DX: K74.60 Unspecified cirrhosis of liver (principal)

== ENCOUNTER → 2021-11-05 | Outpatient (CLI) | payer OTHER ==
[2021-11-05 10:16] LABS: BASO # 0.1 10^3/uL (0.0-0.2); BASO % 0.8 % (0.0-1.0); EOS # 0.5 10^3/uL (0.0-0.5); EOS % 4.6 % (0.0-3.0); HEMATOCRIT 25.3 % (42.0-52.0); LYMPH # 1.8 10^3/uL (1.5-5.0); LYMPH % 17.8 % (24.0-44.0); MEAN CORPUSCULAR HEMOGLOBIN 34.5 pg (27.0-33.0); MEAN CORPUSCULAR HGB CONC 35.6 g/dl (32.0-36.5); MEAN CORPUSCULAR VOLUME 96.9 fl (80.0-96.0); MONO # 1.4 10^3/uL (0.0-0.8); MONO % 14.7 % (2.0-8.0); RED BLOOD COUNT 2.61 10^6/uL (4.30-6.10); WHITE BLOOD COUNT 9.8 10^3/uL (4.0-10.0)
[2021-11-05 11:06] LABS: ALBUMIN 2.8 GM/DL (3.2-5.2); ALT/SGPT 72 U/L (12-78); BILIRUBIN,TOTAL 7.1 MG/DL (0.2-1.0); BLOOD UREA NITROGEN 23 MG/DL (7-18); CALCIUM LEVEL 8.4 MG/DL (8.5-10.1); CARBON DIOXIDE LEVEL 22 MEQ/L (21-32); CHLORIDE LEVEL 103 MEQ/L (98-107); CREATININE FOR GFR 0.82 MG/DL (0.70-1.30); GLOMERULAR FILTRATION RATE > 60.0 (>56); GLUCOSE, FASTING 125 MG/DL (70-100); NT-PRO BNP 242 PG/ML (<125); POTASSIUM SERUM 4.9 MEQ/L (3.5-5.1); SODIUM LEVEL 131 MEQ/L (136-145); TOTAL PROTEIN 6.1 GM/DL (6.4-8.2)
== END ==
LOC: M RAD 09:11
PROVIDERS: ATTEND Internal Medicine Cardiovascular Disease
DX: R91.8 Other nonspecific abnormal finding of lung field (principal); R06.02 Shortness of breath

== ENCOUNTER → 2021-11-06 | Outpatient (CLI) | payer OTHER ==
[~2021-11-06] MED LIST changes: +LIDOCAINE 1% MDV 20ML VIAL ONE; -SPIR-10; +SPIR-10 PO; -TORS5TAB2; +TORS5TAB2 PO
[2021-11-06 12:24] VITALS: BP 127/67
== END ==
LOC: M IRPRO 11:08
PROVIDERS: ATTEND Family Medicine
DX: K74.60 Unspecified cirrhosis of liver (principal)

== ENCOUNTER → 2021-11-09 | Outpatient (CLI) | payer OTHER ==
[~2021-11-09] MED LIST changes: -LIDOCAINE 1% MDV 20ML VIAL ONE; +SPIR-10; -SPIR-10 PO; +TORS5TAB2; -TORS5TAB2 PO
[2021-11-09 11:45] VITALS: BP 109/52
== END ==
LOC: M IRPRO 11:08
PROVIDERS: ATTEND Family Medicine
DX: K74.60 Unspecified cirrhosis of liver (principal)

== ENCOUNTER 2021-11-12 08:45 | Inpatient (IN) | payer OTHER ==
[2021-11-12] VITALS (10 sets, daily range): BP systolic 92–120; BP diastolic 50–58
[~2021-11-12] VITALS: Ht 188 cm; Wt 145.9 kg
[~2021-11-12 08:45] MED LIST changes: -SPIR-10; +SPIR-10 PO; -TORS5TAB2; +TORS5TAB2 PO
[2021-11-12 10:00] LABS: BASO # 0.1 10^3/uL (0.0-0.2); BASO % 0.4 % (0.0-1.0); EOS # 0.4 10^3/uL (0.0-0.5); EOS % 2.7 % (0.0-3.0); HEMATOCRIT 22.4 % (42.0-52.0); HEMOGLOBIN 8.1 g/dl (13.5-17.5); LYMPH # 1.3 10^3/uL (1.5-5.0); LYMPH % 9.4 % (24.0-44.0); MEAN CORPUSCULAR HEMOGLOBIN 35.2 pg (27.0-33.0); MEAN CORPUSCULAR HGB CONC 36.2 g/dl (32.0-36.5); MEAN CORPUSCULAR VOLUME 97.4 fl (80.0-96.0); MONO % 11.5 % (2.0-8.0); NEUTROPHILS # 10.3 10^3/uL (1.5-8.5); NEUTROPHILS % 74.6 % (36.0-66.0); WHITE BLOOD COUNT 13.8 10^3/uL (4.0-10.0)
[2021-11-12 10:20] LABS: CK-MB VALUE MASS 1.2 NG/ML (<3.6); MB/CK RELATIVE INDEX 2.61 (< OR =4)
[2021-11-12 10:25] LABS: ALBUMIN 2.4 GM/DL (3.2-5.2); BILIRUBIN,DIRECT 2.3 MG/DL (0.0-0.2); BILIRUBIN,TOTAL 7.9 MG/DL (0.2-1.0); CALCIUM LEVEL 8.6 MG/DL (8.5-10.1); CREATININE FOR GFR 1.59 MG/DL (0.70-1.30); GLOMERULAR FILTRATION RATE 49.3 (>56); POTASSIUM SERUM 4.7 MEQ/L (3.5-5.1); THYROID STIMULATING HORMONE 3.12 uIU/ML (0.358-3.740)
[2021-11-12 10:27] LABS: INR 1.79; PROTHROMBIN TIME 21.2 SECONDS (12.7-14.5)
[2021-11-12 10:28] LABS: PARTIAL THROMBOPLASTIN TIME 44.6 SECONDS (25.9-37.0)
[2021-11-12 10:33] LABS: MONO # 1.6 10^3/uL (0.0-0.8)
[2021-11-12] MEDS ORDERED: METF-838 PO (12:13)
[2021-11-12] MEDS ORDERED: HOME MED LIST COMPLETE! XX SCH (12:15)
[2021-11-12] MEDS ORDERED: DEXTROSE 50% 50 ML SYRINGE IV PRN (13:10)
[2021-11-12] MEDS ORDERED: MOM 30ML SUSPENSION UDC PO PRN (13:10)
[2021-11-12] MEDS ORDERED: GLUCAGON INJ 1MG VIAL SC PRN (13:10)
[2021-11-12] MEDS ORDERED: GLUCOSE 4GM CHEW TABLET PO PRN (13:10)
[2021-11-12] MEDS ORDERED: cefTRIAXone SOD 2 GM VIAL (J0696 PER 250MG) IM SCH (15:25)
[2021-11-12 15:49] LABS: MAGNESIUM LEVEL 2.4 MG/DL (1.8-2.4); PHOSPHORUS LEVEL 3.9 MG/DL (2.5-4.9)
[2021-11-12] MEDS ORDERED: cefTRIAXone SOD 1 GM in D5W MINI-BAG PLUS 50 ML IV SCH (16:00)
[2021-11-12] MEDS: cefTRIAXone SOD 2 GM in D5W MINI-BAG PLUS 50 ML IV SCH (16:21)
[2021-11-12 16:29] LABS: PLTBLUE- EDTA FREE CALC 112 K/mm3 (172-450); PLTBLUE- EDTA FREE MACHINE 102 10^3/uL (172-450)
[2021-11-12 16:50] LABS: PH BODY FLUID 7.602 UNITS (NOT ESTABLISHED); SOURCE, BODY FLUID pH PLEURAL
[2021-11-12] MEDS: INSULIN LISPRO (NovoLOG) PER UNIT SC SCH ×2 (17:30→20:57)
[2021-11-12 17:40] LABS: AMYLASE, BODY FLUID 21 U/L (NOT ESTABLISHED); CHOLESTEROL, BODY FLUID < 50 MG/DL (NOT ESTABLISHED); LDH, BODY FLUID 68 U/L (NOT ESTABLISHED); SOURCE, BODY FLUID ALBUMIN PLEURAL; SOURCE, BODY FLUID AMYLASE PLEURAL; SOURCE, BODY FLUID CHOL PLEURAL; SOURCE, BODY FLUID GLUCOSE PLEURAL; SOURCE, BODY FLUID LDH PLEURAL; SOURCE, BODY FLUID TOT PROTEIN PLEURAL; SOURCE, BODY FLUID TRIG PLEURAL; TOTAL PROTEIN, BODY FLUID 1.5 G/DL (NOT ESTABLISHED); TRIGLYCERIDE, BODY FLUID 21 MG/DL (NOT ESTABLISHED)
[2021-11-12 17:45] LABS: PLEURAL FL COLOR RED (COLORLESS); SOURCE, BODY FLUID PLEURAL
[2021-11-12 17:46] LABS: APPEARANCE, BODY FLUID CLOUDY (CLEAR)
[2021-11-12] MEDS ORDERED: LIDOCAINE 5% (LIDODERM) PATCH TD ONE (21:00)
[2021-11-12] MEDS: MIRALAX *UNIT DOSE* 17GM PACKET PO PRN (21:39)
[2021-11-12] MEDS: OMEPRAZOLE 20MG CAP PO SCH (21:40)
[2021-11-12] MEDS: THIAMINE 100 MG TAB PO SCH (21:40)
[2021-11-12] MEDS: DOXYCYCLINE HYCLATE 100MG TABLET PO SCH (21:41)
[2021-11-12] MEDS: FOLIC ACID 1 MG TAB PO SCH (21:41)
[2021-11-12] MEDS: MULTIVITAMINS/MINERALS THERAP 1 TAB PO SCH (21:41)
[2021-11-13] VITALS (16 sets, daily range): BP systolic 90–124; BP diastolic 44–73
[2021-11-13 01:10] LABS: APPEARANCE, URINE HAZY (CLEAR); BACTERIA, URINE AUTO NEGATIVE (NEGATIVE); BILIRUBIN, URINE AUTO NEGATIVE (NEGATIVE); BLOOD, URINE BLOOD NEGATIVE (NEGATIVE); COLOR, URINE AMBER (YELLOW); GLUCOSE, URINE (UA) AUTO NEGATIVE (NEGATIVE); KETONE, URINE AUTO NEGATIVE (NEGATIVE); LEUKOCYTE ESTERASE, URINE AUTO NEGATIVE (NEGATIVE); NITRITE, URINE AUTO NEGATIVE (NEGATIVE); PROTEIN, URINE AUTO NEGATIVE (NEGATIVE); RBC, URINE AUTO 1 /HPF (0-3); SPECIFIC GRAVITY URINE AUTO 1.014 (1.002-1.035); SQUAMOUS EPITHELIAL CELL UR AU 0 /HPF (0-6); UROBILINOGEN, URINE AUTO 0.2 mg/dL (0.0-2.0); WBC, URINE AUTO 4 /HPF (0-3)
[2021-11-13 01:26] LABS: SODIUM,RANDOM URINE < 10 MEQ/L
[2021-11-13 05:41] LABS: BASO # 0.1 10^3/uL (0.0-0.2); BASO % 0.5 % (0.0-1.0); EOS # 0.4 10^3/uL (0.0-0.5); EOS % 3.5 % (0.0-3.0); HEMOGLOBIN 7.4 g/dl (13.5-17.5); LYMPH # 1.6 10^3/uL (1.5-5.0); MEAN CORPUSCULAR HEMOGLOBIN 33.6 pg (27.0-33.0); MEAN CORPUSCULAR HGB CONC 35.2 g/dl (32.0-36.5); MEAN CORPUSCULAR VOLUME 95.5 fl (80.0-96.0); MONO # 1.5 10^3/uL (0.0-0.8); MONO % 14.5 % (2.0-8.0); NEUTROPHILS # 6.7 10^3/uL (1.5-8.5); PLATELET COUNT, AUTOMATED 102 10^3/uL (150-450); WHITE BLOOD COUNT 10.4 10^3/uL (4.0-10.0)
[2021-11-13 06:07] LABS: ALBUMIN 2.5 GM/DL (3.2-5.2); BILIRUBIN,TOTAL 4.6 MG/DL (0.2-1.0); CALCIUM LEVEL 7.8 MG/DL (8.5-10.1); CREATININE FOR GFR 1.7 MG/DL (0.70-1.30); GLOMERULAR FILTRATION RATE 45.6 (>56); MAGNESIUM LEVEL 2.3 MG/DL (1.8-2.4); PHOSPHORUS LEVEL 3.9 MG/DL (2.5-4.9); POTASSIUM SERUM 4.5 MEQ/L (3.5-5.1); TOTAL PROTEIN 5.7 GM/DL (6.4-8.2)
[2021-11-13] MEDS: INSULIN LISPRO (NovoLOG) PER UNIT SC SCH ×4 (07:30→20:18)
[2021-11-13] MEDS ORDERED: **NOTE PATIENT COMMENT** MISC XX ONE (09:00)
[2021-11-13] MEDS: DOXYCYCLINE HYCLATE 100MG TABLET PO SCH ×2 (09:03→21:05)
[2021-11-13] MEDS: HEPARIN SOD (PORCINE) 5000UNITS/ML 1ML VIAL/SYRINGE SQ SCH ×2 (13:00→20:19)
[2021-11-13 14:00] LABS: PERCENT SATURATION 74.2 % (19.7-50.0)
[2021-11-13 14:10] LABS: FOLATE 13.2 NG/ML (>5.4); VITAMIN B12 LEVEL > 2000 PG/ML (247-911)
[2021-11-13] MEDS: cefTRIAXone SOD 2 GM in D5W MINI-BAG PLUS 50 ML IV SCH (16:30)
[2021-11-13] MEDS: SPIRONOLACTONE 25 MG TAB PO SCH (16:30)
[2021-11-13] MEDS: TORSEMIDE 20 MG TAB PO SCH (16:31)
[2021-11-13] MEDS: THIAMINE 100 MG TAB PO SCH (21:05)
[2021-11-13] MEDS: FOLIC ACID 1 MG TAB PO SCH (21:05)
[2021-11-13] MEDS: MULTIVITAMINS/MINERALS THERAP 1 TAB PO SCH (21:05)
[2021-11-13] MEDS: OMEPRAZOLE 20MG CAP PO SCH (21:05)
[2021-11-13] MEDS: MIRALAX *UNIT DOSE* 17GM PACKET PO PRN (21:10)
[2021-11-14] VITALS (7 sets, daily range): BP systolic 100–148; BP diastolic 48–70
[2021-11-14] MEDS: HEPARIN SOD (PORCINE) 5000UNITS/ML 1ML VIAL/SYRINGE SQ SCH ×3 (05:00→20:27)
[2021-11-14 06:21] LABS: INR 1.71; PROTHROMBIN TIME 20.5 SECONDS (12.7-14.5)
[2021-11-14 06:26] LABS: PARTIAL THROMBOPLASTIN TIME 46.7 SECONDS (25.9-37.0)
[2021-11-14 06:30] LABS: ALBUMIN 2.8 GM/DL (3.2-5.2); ALT/SGPT 50 U/L (12-78); BILIRUBIN,TOTAL 2.9 MG/DL (0.2-1.0); BLOOD UREA NITROGEN 42 MG/DL (7-18); CALCIUM LEVEL 7.9 MG/DL (8.5-10.1); CARBON DIOXIDE LEVEL 19 MEQ/L (21-32); CHLORIDE LEVEL 104 MEQ/L (98-107); CREATININE FOR GFR 1.28 MG/DL (0.70-1.30); GLOMERULAR FILTRATION RATE > 60.0 (>56); GLUCOSE, FASTING 130 MG/DL (70-100); MAGNESIUM LEVEL 2.2 MG/DL (1.8-2.4); PHOSPHORUS LEVEL 3.9 MG/DL (2.5-4.9); POTASSIUM SERUM 3.7 MEQ/L (3.5-5.1); SODIUM LEVEL 131 MEQ/L (136-145)
[2021-11-14] MEDS ORDERED: DARBEPOETIN 100 MCG/0.5 ML *NON-DIALYSIS* SYRINGE (J0881) SC SCH (09:00)
[2021-11-14 09:11] LABS: BASO # 0.1 10^3/uL (0.0-0.2); BASO % 0.5 % (0.0-1.0); EOS # 0.5 10^3/uL (0.0-0.5); EOS % 5.4 % (0.0-3.0); HEMOGLOBIN 7.5 g/dl (13.5-17.5); LYMPH # 1.6 10^3/uL (1.5-5.0); MEAN CORPUSCULAR HEMOGLOBIN 35.2 pg (27.0-33.0); MEAN CORPUSCULAR HGB CONC 36.4 g/dl (32.0-36.5); MEAN CORPUSCULAR VOLUME 96.7 fl (80.0-96.0); MONO # 1.5 10^3/uL (0.0-0.8); MONO % 15.8 % (2.0-8.0); NEUTROPHILS # 5.6 10^3/uL (1.5-8.5); NEUTROPHILS % 59.5 % (36.0-66.0); RED BLOOD COUNT 2.13 10^6/uL (4.30-6.10); WHITE BLOOD COUNT 9.3 10^3/uL (4.0-10.0)
[2021-11-14] MEDS: INSULIN LISPRO (NovoLOG) PER UNIT SC SCH ×4 (09:18→20:00)
[2021-11-14] MEDS: SPIRONOLACTONE 25 MG TAB PO SCH ×2 (09:18→16:23)
[2021-11-14] MEDS: guaiFENesin ER 600 MG TAB PO SCH ×2 (09:19→20:28)
[2021-11-14] MEDS: DOXYCYCLINE HYCLATE 100MG TABLET PO SCH ×2 (09:19→20:28)
[2021-11-14] MEDS: TORSEMIDE 20 MG TAB PO SCH ×2 (09:19→16:23)
[2021-11-14 09:44] LABS: HEMATOCRIT 20.6 % (42.0-52.0)
[2021-11-14 15:12] LABS: PLTBLUE- EDTA FREE CALC 96 K/mm3 (172-450); PLTBLUE- EDTA FREE MACHINE 87 10^3/uL (172-450)
[2021-11-14] MEDS: cefTRIAXone SOD 2 GM in D5W MINI-BAG PLUS 50 ML IV SCH (16:24)
[2021-11-14] MEDS ORDERED: diphenhydrAMINE 25MG CAP PO ONE (18:05)
[2021-11-14] MEDS: MULTIVITAMINS/MINERALS THERAP 1 TAB PO SCH (20:27)
[2021-11-14] MEDS: FOLIC ACID 1 MG TAB PO SCH (20:27)
[2021-11-14] MEDS: OMEPRAZOLE 20MG CAP PO SCH (20:28)
[2021-11-14] MEDS: THIAMINE 100 MG TAB PO SCH (20:28)
[2021-11-14] MEDS: MIRALAX *UNIT DOSE* 17GM PACKET PO PRN (20:31)
[2021-11-15] VITALS: BP 114/58
[2021-11-15 03:55] VITALS: BP 110/52
[2021-11-15] MEDS: HEPARIN SOD (PORCINE) 5000UNITS/ML 1ML VIAL/SYRINGE SQ SCH ×3 (05:07→21:00)
[2021-11-15 07:19] VITALS: BP 107/54
[2021-11-15] MEDS: INSULIN LISPRO (NovoLOG) PER UNIT SC SCH ×4 (08:55→20:42)
[2021-11-15] MEDS: TORSEMIDE 20 MG TAB PO SCH ×2 (09:58→16:14)
[2021-11-15] MEDS: guaiFENesin ER 600 MG TAB PO SCH ×2 (09:58→20:42)
[2021-11-15] MEDS: SPIRONOLACTONE 25 MG TAB PO SCH ×2 (09:58→16:14)
[2021-11-15] MEDS: DOXYCYCLINE HYCLATE 100MG TABLET PO SCH ×2 (09:58→20:41)
[2021-11-15 11:51] VITALS: BP 107/58
[2021-11-15] MEDS ORDERED: POTASSIUM CHLORIDE 10MEQ SR TABLET PO ONE (12:45)
[2021-11-15 15:49] VITALS: BP 110/52
[2021-11-15] MEDS: cefTRIAXone SOD 2 GM in D5W MINI-BAG PLUS 50 ML IV SCH (16:15)
[2021-11-15 20:00] VITALS: BP 123/58
[2021-11-15] MEDS: THIAMINE 100 MG TAB PO SCH (20:41)
[2021-11-15] MEDS: OMEPRAZOLE 20MG CAP PO SCH (20:41)
[2021-11-15] MEDS: MULTIVITAMINS/MINERALS THERAP 1 TAB PO SCH (20:41)
[2021-11-15] MEDS: FOLIC ACID 1 MG TAB PO SCH (20:41)
[2021-11-15] MEDS: MIRALAX *UNIT DOSE* 17GM PACKET PO PRN (20:47)
[2021-11-16] VITALS (9 sets, daily range): BP systolic 104–127; BP diastolic 53–56
[2021-11-16] MEDS ORDERED: CALCIUM CARBONATE 500 MG CHEW U/D PO PRN (01:30)
[2021-11-16] MEDS: HEPARIN SOD (PORCINE) 5000UNITS/ML 1ML VIAL/SYRINGE SQ SCH (05:00)
[2021-11-16 05:48] LABS: BASO # 0.1 10^3/uL (0.0-0.2); BASO % 0.7 % (0.0-1.0); EOS # 0.6 10^3/uL (0.0-0.5); EOS % 7.3 % (0.0-3.0); HEMATOCRIT 21.9 % (42.0-52.0); HEMOGLOBIN 7.8 g/dl (13.5-17.5); LYMPH # 1.6 10^3/uL (1.5-5.0); LYMPH % 18.2 % (24.0-44.0); MEAN CORPUSCULAR HEMOGLOBIN 34.2 pg (27.0-33.0); MEAN CORPUSCULAR HGB CONC 35.6 g/dl (32.0-36.5); MEAN CORPUSCULAR VOLUME 96.1 fl (80.0-96.0); MONO # 1.4 10^3/uL (0.0-0.8); MONO % 15.8 % (2.0-8.0); NEUTROPHILS # 4.8 10^3/uL (1.5-8.5); NEUTROPHILS % 54.4 % (36.0-66.0); RED BLOOD COUNT 2.28 10^6/uL (4.30-6.10); WHITE BLOOD COUNT 8.8 10^3/uL (4.0-10.0)
[2021-11-16 05:51] LABS: INR 1.72; PROTHROMBIN TIME 20.6 SECONDS (12.7-14.5)
[2021-11-16 06:07] LABS: ALBUMIN 2.7 GM/DL (3.2-5.2); ALT/SGPT 50 U/L (12-78); BILIRUBIN,TOTAL 3.2 MG/DL (0.2-1.0); BLOOD UREA NITROGEN 32 MG/DL (7-18); CALCIUM LEVEL 7.9 MG/DL (8.5-10.1); CARBON DIOXIDE LEVEL 23 MEQ/L (21-32); CHLORIDE LEVEL 106 MEQ/L (98-107); CREATININE FOR GFR 1.13 MG/DL (0.70-1.30); GLOMERULAR FILTRATION RATE > 60.0 (>56); GLUCOSE, FASTING 132 MG/DL (70-100); MAGNESIUM LEVEL 1.8 MG/DL (1.8-2.4); PHOSPHORUS LEVEL 3.4 MG/DL (2.5-4.9); POTASSIUM SERUM 3.3 MEQ/L (3.5-5.1); SODIUM LEVEL 136 MEQ/L (136-145); TOTAL PROTEIN 5.9 GM/DL (6.4-8.2)
[2021-11-16 08:24] LABS: PLTBLUE- EDTA FREE CALC 98 K/mm3 (172-450); PLTBLUE- EDTA FREE MACHINE 89 10^3/uL (172-450)
[2021-11-16] MEDS ORDERED: POTASSIUM CHLORIDE 10MEQ SR TABLET PO SCH (09:00)
[2021-11-16] MEDS: INSULIN LISPRO (NovoLOG) PER UNIT SC SCH ×4 (09:20→19:58)
[2021-11-16] MEDS ORDERED: OCTREOTIDE ACETATE 100MCG/ML VIAL **IV ADMINISTRATION ONLY IV ONE (09:30)
[2021-11-16] MEDS: guaiFENesin ER 600 MG TAB PO SCH ×2 (09:34→20:00)
[2021-11-16] MEDS: TORSEMIDE 20 MG TAB PO SCH ×2 (09:34→17:12)
[2021-11-16] MEDS: DOXYCYCLINE HYCLATE 100MG TABLET PO SCH ×2 (09:34→20:00)
[2021-11-16] MEDS: SPIRONOLACTONE 25 MG TAB PO SCH ×2 (09:35→17:12)
[2021-11-16] MEDS ORDERED: OCTREOTIDE ACETATE 1,200 MCG in NS 238.8 ML IV SCH (11:00)
[2021-11-16] MEDS ORDERED: fentaNYL 100 MCG/2 ML INJECTION As Ordered ONE (12:38)
[2021-11-16] MEDS ORDERED: propofoL 200 MG/20 ML VIAL As Ordered ONE (12:40)
[2021-11-16] MEDS ORDERED: ROCURONIUM BROMIDE 50 MG/5 ML VIAL As Ordered ONE (12:41)
[2021-11-16] MEDS ORDERED: LIDOCAINE 2% 100MG/5ML SDV (FOR ANES.) As Ordered ONE (12:43)
[2021-11-16] MEDS ORDERED: SUGAMMADEX SODIUM 500 MG/5 ML VIAL (BRIDION) As Ordered ONE (12:44)
[2021-11-16] MEDS ORDERED: METOCLOPRAMIDE INJ 10MG/2ML VIAL (J2765 PER 1) As Ordered ONE (12:44)
[2021-11-16] MEDS ORDERED: dexameTHASONE 4 MG/ML 1ML VIAL (J1100 PER 1MG) As Ordered ONE (12:45)
[2021-11-16] MEDS ORDERED: ONDANSETRON 4MG/2ML VIAL As Ordered ONE (12:45)
[2021-11-16] MEDS ORDERED: PHENYLephrine 500MCG 5ML (100MCG/ML) SYRINGE As Ordered ONE (12:58)
[2021-11-16] MEDS ORDERED: ePHEDrine SULFATE 25 MG/5 ML(5MG/ML) SYRINGE As Ordered ONE (13:01)
[2021-11-16] MEDS ORDERED: ONDANSETRON 4MG/2ML VIAL IV PRN (13:30)
[2021-11-16 14:44] LABS: HEMATOCRIT 23.2 % (42.0-52.0); HEMOGLOBIN 8.2 g/dl (13.5-17.5)
[2021-11-16] MEDS: PANTOPRAZOLE 40MG VIAL IV SCH ×2 (14:51→20:00)
[2021-11-16] MEDS: cefTRIAXone SOD 2 GM in D5W MINI-BAG PLUS 50 ML IV SCH (17:12)
[2021-11-16] MEDS: THIAMINE 100 MG TAB PO SCH (20:00)
[2021-11-16] MEDS: MULTIVITAMINS/MINERALS THERAP 1 TAB PO SCH (20:00)
[2021-11-16] MEDS: FOLIC ACID 1 MG TAB PO SCH (20:00)
[2021-11-17] VITALS: BP 108/55
[2021-11-17 04:00] VITALS: BP 114/58
[2021-11-17 06:05] LABS: BASO # 0.1 10^3/uL (0.0-0.2); BASO % 0.4 % (0.0-1.0); EOS % 0.4 % (0.0-3.0); HEMATOCRIT 23.1 % (42.0-52.0); HEMOGLOBIN 8.3 g/dl (13.5-17.5); LYMPH # 1.1 10^3/uL (1.5-5.0); LYMPH % 10.2 % (24.0-44.0); MEAN CORPUSCULAR HEMOGLOBIN 35.2 pg (27.0-33.0); MEAN CORPUSCULAR HGB CONC 35.9 g/dl (32.0-36.5); MEAN CORPUSCULAR VOLUME 97.9 fl (80.0-96.0); MONO # 1.3 10^3/uL (0.0-0.8); MONO % 11.9 % (2.0-8.0); NEUTROPHILS # 8.1 10^3/uL (1.5-8.5); NEUTROPHILS % 72.9 % (36.0-66.0); RED BLOOD COUNT 2.36 10^6/uL (4.30-6.10); WHITE BLOOD COUNT 11.1 10^3/uL (4.0-10.0)
[2021-11-17 06:23] LABS: ALBUMIN 2.7 GM/DL (3.2-5.2); ALT/SGPT 51 U/L (12-78); BILIRUBIN,TOTAL 4.1 MG/DL (0.2-1.0); BLOOD UREA NITROGEN 30 MG/DL (7-18); CALCIUM LEVEL 8.6 MG/DL (8.5-10.1); CARBON DIOXIDE LEVEL 21 MEQ/L (21-32); CHLORIDE LEVEL 107 MEQ/L (98-107); CREATININE FOR GFR 1.18 MG/DL (0.70-1.30); GLOMERULAR FILTRATION RATE > 60.0 (>56); GLUCOSE, FASTING 144 MG/DL (70-100); MAGNESIUM LEVEL 1.7 MG/DL (1.8-2.4); PHOSPHORUS LEVEL 3.5 MG/DL (2.5-4.9); POTASSIUM SERUM 3.7 MEQ/L (3.5-5.1); SODIUM LEVEL 137 MEQ/L (136-145); TOTAL PROTEIN 6.7 GM/DL (6.4-8.2)
[2021-11-17 07:40] VITALS: BP 111/58
[2021-11-17] MEDS ORDERED: MAGNESIUM OXIDE 400MG TAB (MAG-OX) PO ONE (08:00)
[2021-11-17] MEDS: LACTOBACILLUS ACIDOPHILUS CAP (BACID) PO SCH ×2 (08:20→19:00)
[2021-11-17] MEDS: PANTOPRAZOLE 40MG VIAL IV SCH ×2 (08:20→21:51)
[2021-11-17] MEDS: INSULIN LISPRO (NovoLOG) PER UNIT SC SCH ×4 (08:20→21:00)
[2021-11-17] MEDS: DOXYCYCLINE HYCLATE 100MG TABLET PO SCH (08:20)
[2021-11-17] MEDS: guaiFENesin ER 600 MG TAB PO SCH ×2 (08:21→21:51)
[2021-11-17 11:00] VITALS: BP 116/55
[2021-11-17] MEDS: HEPARIN SOD (PORCINE) 5000UNITS/ML 1ML VIAL/SYRINGE SQ SCH ×2 (13:00→21:00)
[2021-11-17 14:01] LABS: ASCITES FL COLOR YELLOW (COLORLESS); SOURCE, BODY FLUID ASCITES
[2021-11-17 14:02] LABS: APPEARANCE, BODY FLUID HAZY (CLEAR)
[2021-11-17 14:24] LABS: SPEC. GRAVITY BODY FLUIDS 1.012 (NOT ESTABLISHED)
[2021-11-17 14:27] LABS: SOURCE, BODY FLUID ALBUMIN ASCITES; SOURCE, BODY FLUID GLUCOSE ASCITES; SOURCE, BODY FLUID TOT PROTEIN ASCITES; TOTAL PROTEIN, BODY FLUID 0.8 G/DL (NOT ESTABLISHED)
[2021-11-17 15:58] VITALS: BP 106/51
[2021-11-17] MEDS: cefTRIAXone SOD 2 GM in D5W MINI-BAG PLUS 50 ML IV SCH (16:52)
[2021-11-17] MEDS ORDERED: TORS20TA2 PO (18:51)
[2021-11-17] MEDS ORDERED: PROTPAK PO (18:51)
[2021-11-17] MEDS ORDERED: MIRA1POW3 PO (18:51)
[2021-11-17] MEDS ORDERED: RISATAB3 PO (18:51)
[2021-11-17] MEDS ORDERED: HEMO1SUP10 PR (18:51)
[2021-11-17] MEDS ORDERED: ALDA25TA2 PO (18:51)
[2021-11-17] MEDS ORDERED: CIPR250T3 PO (18:55)
[2021-11-17] MEDS ORDERED: PROB250C PO (18:55)
[2021-11-17 20:00] VITALS: BP 116/54
[2021-11-17] MEDS ORDERED: PREPARATION H SUPP (HEMORRHOID) PR SCH (21:00)
[2021-11-17] MEDS: THIAMINE 100 MG TAB PO SCH (21:51)
[2021-11-17] MEDS: FOLIC ACID 1 MG TAB PO SCH (21:52)
[2021-11-17] MEDS: MULTIVITAMINS/MINERALS THERAP 1 TAB PO SCH (21:52)
[2021-11-18 00:09] VITALS: BP 109/55
[2021-11-18 04:00] VITALS: BP 106/57
[2021-11-18] MEDS: HEPARIN SOD (PORCINE) 5000UNITS/ML 1ML VIAL/SYRINGE SQ SCH (05:00)
[2021-11-18 06:09] LABS: HEMATOCRIT 22.2 % (42.0-52.0); MEAN CORPUSCULAR HEMOGLOBIN 35.4 pg (27.0-33.0); MEAN CORPUSCULAR VOLUME 98.2 fl (80.0-96.0); RED BLOOD COUNT 2.26 10^6/uL (4.30-6.10); WHITE BLOOD COUNT 13.8 10^3/uL (4.0-10.0)
[2021-11-18 06:54] LABS: ALBUMIN 2.9 GM/DL (3.2-5.2); ALT/SGPT 53 U/L (12-78); BILIRUBIN,TOTAL 3.5 MG/DL (0.2-1.0); BLOOD UREA NITROGEN 26 MG/DL (7-18); CALCIUM LEVEL 8.1 MG/DL (8.5-10.1); CARBON DIOXIDE LEVEL 23 MEQ/L (21-32); CHLORIDE LEVEL 106 MEQ/L (98-107); CREATININE FOR GFR 1.07 MG/DL (0.70-1.30); GLOMERULAR FILTRATION RATE > 60.0 (>56); GLUCOSE, FASTING 128 MG/DL (70-100); POTASSIUM SERUM 3.5 MEQ/L (3.5-5.1); SODIUM LEVEL 135 MEQ/L (136-145); TOTAL PROTEIN 6.3 GM/DL (6.4-8.2)
[2021-11-18] MEDS: INSULIN LISPRO (NovoLOG) PER UNIT SC SCH (07:30)
[2021-11-18] MEDS: guaiFENesin ER 600 MG TAB PO SCH (08:58)
[2021-11-18] MEDS: LACTOBACILLUS ACIDOPHILUS CAP (BACID) PO SCH (08:58)
[2021-11-18 16:10] LABS: BODY FLUID CULTURE Not indicated. (.); LEGIONELLA ANTIGEN URINE Negative (Negative); ORGANISM ID Not indicated. (.); SPECIMEN SOURCE Urine (.); URINE STREP PNEUMONIAE ANTIGEN Negative (Negative)
== END 2021-11-18 09:32 | disposition home or self-care (01) | DRG 186 ==
LOC: M ED 08:45 → M ED INP 12:37 → ENRESERV 13:23 → M PCU 14:08
PROVIDERS: ADMIT Internal Medicine; ATTEND Internal Medicine
PROC: 0W993ZZ Drainage of Right Pleural Cavity, Percutaneous Approach (ICD-10-PCS; 2021-11-12)
PROC: 30233J1 Transfusion of Nonautologous Serum Albumin into Peripheral Vein, Percutaneous Approach (ICD-10-PCS; 2021-11-12)
PROC: 0DJ08ZZ Inspection of Upper Intestinal Tract, Via Natural or Artificial Opening Endoscopic (ICD-10-PCS; principal; 2021-11-16 12:08)
PROC: 0W9G3ZZ Drainage of Peritoneal Cavity, Percutaneous Approach (ICD-10-PCS; 2021-11-17)
DX: J90 Pleural effusion, not elsewhere classified (principal); J18.9 Pneumonia, unspecified organism; J98.11 Atelectasis; N17.9 Acute kidney failure, unspecified; E87.1 Hypo-osmolality and hyponatremia; I85.10 Secondary esophageal varices without bleeding; K76.6 Portal hypertension; K92.1 Melena; Z68.41 Body mass index [BMI] 40.0-44.9, adult; J94.8 Other specified pleural conditions; K70.31 Alcoholic cirrhosis of liver with ascites; E66.01 Morbid (severe) obesity due to excess calories; E11.22 Type 2 diabetes mellitus with diabetic chronic kidney disease; I12.9 Hypertensive chronic kidney disease with stage 1 through stage 4 chronic kidney disease, or unspecified chronic kidney disease; F17.210 Nicotine dependence, cigarettes, uncomplicated; J44.9 Chronic obstructive pulmonary disease, unspecified; N18.9 Chronic kidney disease, unspecified; K64.4 Residual hemorrhoidal skin tags; K31.89 Other diseases of stomach and duodenum; K64.8 Other hemorrhoids; E78.5 Hyperlipidemia, unspecified; F10.20 Alcohol dependence, uncomplicated; K59.09 Other constipation; J30.9 Allergic rhinitis, unspecified; D69.6 Thrombocytopenia, unspecified; D53.9 Nutritional anemia, unspecified; K21.9 Gastro-esophageal reflux disease without esophagitis; Z79.84 Long term (current) use of oral hypoglycemic drugs; Z79.899 Other long term (current) drug therapy; Z88.8 Allergy status to other drugs, medicaments and biological substances

== ENCOUNTER 2021-11-21 20:37 | Inpatient (IN) | payer OTHER ==
[~2021-11-21] VITALS: Ht 188 cm; Wt 150.3 kg
[~2021-11-21 20:37] MED LIST changes: +ALDA25TA2 PO; +CIPR250T3 PO; +HEMO1SUP10 PR; +MIRA1POW3 PO; +PROB250C PO; +PROTPAK PO; +RISATAB3 PO; +TORS20TA2 PO
[2021-11-21] MEDS ORDERED: KETOROLAC 30 MG/ML 1ML VIAL IV ONE (22:15)
[2021-11-21 23:00] LABS: BASO # 0.1 10^3/uL (0.0-0.2); BASO % 0.5 % (0.0-1.0); EOS # 0.3 10^3/uL (0.0-0.5); EOS % 2.8 % (0.0-3.0); HEMATOCRIT 22.1 % (42.0-52.0); HEMOGLOBIN 7.8 g/dl (13.5-17.5); LYMPH # 1.3 10^3/uL (1.5-5.0); LYMPH % 13.7 % (24.0-44.0); MEAN CORPUSCULAR HEMOGLOBIN 35.6 pg (27.0-33.0); MEAN CORPUSCULAR HGB CONC 35.3 g/dl (32.0-36.5); MEAN CORPUSCULAR VOLUME 100.9 fl (80.0-96.0); MONO % 10.4 % (2.0-8.0); NEUTROPHILS # 6.5 10^3/uL (1.5-8.5); NEUTROPHILS % 69.5 % (36.0-66.0); RED BLOOD COUNT 2.19 10^6/uL (4.30-6.10); WHITE BLOOD COUNT 9.3 10^3/uL (4.0-10.0)
[2021-11-21 23:28] LABS: CK-MB VALUE MASS 1.4 NG/ML (<3.6); MB/CK RELATIVE INDEX 3.04 (< OR =4)
[2021-11-21 23:30] LABS: ALBUMIN 2.4 GM/DL (3.2-5.2); BILIRUBIN,TOTAL 3.4 MG/DL (0.2-1.0); C REACTIVE PROTEIN QUANTITATIV 0.78 MG/DL (0.00-0.30); CALCIUM LEVEL 7.4 MG/DL (8.5-10.1); CREATININE FOR GFR 1.45 MG/DL (0.70-1.30); GLOMERULAR FILTRATION RATE 54.8 (>56); POTASSIUM SERUM 3.2 MEQ/L (3.5-5.1); TOTAL PROTEIN 5.3 GM/DL (6.4-8.2)
[2021-11-22] MEDS ORDERED: POTASSIUM CHLORIDE 10MEQ SR TABLET PO ONE (01:00)
[2021-11-22] MEDS ORDERED: ISOVUE-370 76% 100ML VIAL As Ordered ONE (02:56)
[2021-11-22] MEDS ORDERED: ASPIRIN 81 MG CHEW TABLET PO ONE (04:40)
[2021-11-22] MEDS ORDERED: SIMVASTATIN 40 MG TAB PO ONE (04:40)
[2021-11-22] MEDS ORDERED: CIPR250T3 PO (05:12)
[2021-11-22] MEDS ORDERED: RISATAB3 PO (05:12)
[2021-11-22] MEDS ORDERED: SPIR-10 PO (05:12)
[2021-11-22] MEDS ORDERED: TORS20TA2 PO (05:12)
[2021-11-22] MEDS ORDERED: HOME MED LIST COMPLETE! XX SCH (05:15)
[2021-11-22 05:46] LABS: INR 2.06; PARTIAL THROMBOPLASTIN TIME 36.3 SECONDS (25.9-37.0); PROTHROMBIN TIME 23.6 SECONDS (12.7-14.5)
[2021-11-22 06:41] LABS: MAGNESIUM LEVEL 1.7 MG/DL (1.8-2.4)
[2021-11-22] MEDS ORDERED: NS 1,000 ML IV ONE (07:15)
[2021-11-22] MEDS ORDERED: NS 500 ML IV ONE (07:20)
[2021-11-22] MEDS ORDERED: NS 250 ML IV ONE (07:25)
[2021-11-22] MEDS: CIPROFLOXACIN 500MG TABLET PO SCH (08:13)
[2021-11-22] MEDS: LACTOBACILLUS ACIDOPHILUS CAP (BACID) PO SCH ×2 (08:13→18:10)
[2021-11-22 08:17] LABS: HEMOGLOBIN 7.9 g/dl (13.5-17.5); MEAN CORPUSCULAR HEMOGLOBIN 35.9 pg (27.0-33.0); MEAN CORPUSCULAR HGB CONC 35.9 g/dl (32.0-36.5); PLATELET COUNT, AUTOMATED 115 10^3/uL (150-450); WHITE BLOOD COUNT 7.2 10^3/uL (4.0-10.0)
[2021-11-22 08:44] LABS: ALBUMIN 2.2 GM/DL (3.2-5.2); CALCIUM LEVEL 8.1 MG/DL (8.5-10.1); CREATININE FOR GFR 1.36 MG/DL (0.70-1.30); GLOMERULAR FILTRATION RATE 59.1 (>56); MAGNESIUM LEVEL 1.7 MG/DL (1.8-2.4); POTASSIUM SERUM 3.2 MEQ/L (3.5-5.1); TOTAL PROTEIN 5.4 GM/DL (6.4-8.2)
[2021-11-22 14:31] VITALS: BP 122/56
[2021-11-22 15:18] VITALS: BP 106/54
[2021-11-22 15:20] VITALS: BP 116/54
[2021-11-22 15:22] VITALS: BP 93/46
[2021-11-22] MEDS ORDERED: MAGNESIUM OXIDE 400MG TAB (MAG-OX) PO ONE (16:35)
[2021-11-22] MEDS ORDERED: GLUCAGON INJ 1MG VIAL SC PRN (18:05)
[2021-11-22] MEDS ORDERED: GLUCOSE 4GM CHEW TABLET PO PRN (18:05)
[2021-11-22] MEDS ORDERED: DEXTROSE 50% 50 ML SYRINGE IV PRN (18:05)
[2021-11-22] MEDS ORDERED: ONDANSETRON 4MG TAB PO PRN (18:40)
[2021-11-22 20:00] VITALS: BP 85/41
[2021-11-22 20:48] VITALS: BP 114/51
[2021-11-22] MEDS: INSULIN LISPRO (NovoLOG) PER UNIT SC SCH (21:00)
[2021-11-22] MEDS: ATORVASTATIN 20 MG TAB PO SCH (21:00)
[2021-11-22] MEDS: MULTIVITAMINS/MINERALS THERAP 1 TAB PO SCH (21:58)
[2021-11-22] MEDS: THIAMINE 100 MG TAB PO SCH (21:58)
[2021-11-22] MEDS: OMEPRAZOLE 20MG CAP PO SCH (21:59)
[2021-11-22] MEDS: FOLIC ACID 1 MG TAB PO SCH (21:59)
[2021-11-23] VITALS (11 sets, daily range): BP systolic 88–131; BP diastolic 49–60
[2021-11-23] MEDS ORDERED: MIRALAX *UNIT DOSE* 17GM PACKET PO PRN (07:25)
[2021-11-23] MEDS ORDERED: LACTULOSE 20 GM/30 ML SYRUP UD PO ONE ×2 (07:25→18:00)
[2021-11-23 07:29] LABS: BASO % 0.4 % (0.0-1.0); EOS # 0.3 10^3/uL (0.0-0.5); EOS % 3.2 % (0.0-3.0); HEMATOCRIT 22.2 % (42.0-52.0); HEMOGLOBIN 7.9 g/dl (13.5-17.5); LYMPH # 1.5 10^3/uL (1.5-5.0); LYMPH % 14.5 % (24.0-44.0); MEAN CORPUSCULAR HEMOGLOBIN 35.4 pg (27.0-33.0); MEAN CORPUSCULAR HGB CONC 35.6 g/dl (32.0-36.5); MEAN CORPUSCULAR VOLUME 99.6 fl (80.0-96.0); MONO % 10.1 % (2.0-8.0); NEUTROPHILS % 69.7 % (36.0-66.0); RED BLOOD COUNT 2.23 10^6/uL (4.30-6.10); WHITE BLOOD COUNT 10.1 10^3/uL (4.0-10.0)
[2021-11-23 08:03] LABS: ALBUMIN 2.4 GM/DL (3.2-5.2); ALT/SGPT 53 U/L (12-78); BILIRUBIN,DIRECT 1.5 MG/DL (0.0-0.2); BILIRUBIN,TOTAL 4.4 MG/DL (0.2-1.0); BLOOD UREA NITROGEN 31 MG/DL (7-18); CALCIUM LEVEL 7.6 MG/DL (8.5-10.1); CARBON DIOXIDE LEVEL 23 MEQ/L (21-32); CHLORIDE LEVEL 105 MEQ/L (98-107); CREATININE FOR GFR 1.18 MG/DL (0.70-1.30); GLOMERULAR FILTRATION RATE > 60.0 (>56); GLUCOSE, FASTING 133 MG/DL (70-100); MAGNESIUM LEVEL 1.9 MG/DL (1.8-2.4); PHOSPHORUS LEVEL 3.2 MG/DL (2.5-4.9); POTASSIUM SERUM 3.4 MEQ/L (3.5-5.1); SODIUM LEVEL 135 MEQ/L (136-145); TOTAL PROTEIN 5.4 GM/DL (6.4-8.2)
[2021-11-23] MEDS: INSULIN LISPRO (NovoLOG) PER UNIT SC SCH ×4 (08:38→21:00)
[2021-11-23] MEDS: LACTOBACILLUS ACIDOPHILUS CAP (BACID) PO SCH ×2 (08:39→18:00)
[2021-11-23] MEDS: CIPROFLOXACIN 500MG TABLET PO SCH (08:39)
[2021-11-23] MEDS: DOCUSATE SODIUM 100MG CAPSULE PO SCH ×3 (08:40→22:28)
[2021-11-23] MEDS ORDERED: ANUSOL HC 25MG SUPP PR SCH (09:00)
[2021-11-23] MEDS ORDERED: TORSEMIDE 20 MG TAB PO SCH (09:00)
[2021-11-23] MEDS ORDERED: SPIRONOLACTONE 25 MG TAB PO SCH (09:00)
[2021-11-23] MEDS ORDERED: ASPIRIN 81MG ENTERIC TABLET PO SCH (09:00)
[2021-11-23] MEDS ORDERED: POTASSIUM CHLORIDE 10MEQ SR TABLET PO ONE (17:30)
[2021-11-23] MEDS ORDERED: ISOVUE-370 76% 100ML VIAL As Ordered ONE (18:12)
[2021-11-23] MEDS: SENNA 8.6 MG TAB (SENOKOT) PO SCH ×2 (21:00→22:28)
[2021-11-23] MEDS: PREPARATION H SUPP (HEMORRHOID) PR SCH (21:00)
[2021-11-23] MEDS: OMEPRAZOLE 20MG CAP PO SCH (22:28)
[2021-11-23] MEDS: ATORVASTATIN 20 MG TAB PO SCH (22:28)
[2021-11-23] MEDS: THIAMINE 100 MG TAB PO SCH (22:29)
[2021-11-23] MEDS: MULTIVITAMINS/MINERALS THERAP 1 TAB PO SCH (22:29)
[2021-11-23] MEDS: FOLIC ACID 1 MG TAB PO SCH (22:29)
[2021-11-24] VITALS (11 sets, daily range): BP systolic 99–129; BP diastolic 47–60
[2021-11-24 08:31] LABS: BASO % 0.4 % (0.0-1.0); EOS # 0.3 10^3/uL (0.0-0.5); EOS % 3.8 % (0.0-3.0); HEMATOCRIT 21.3 % (42.0-52.0); HEMOGLOBIN 7.6 g/dl (13.5-17.5); LYMPH # 1.5 10^3/uL (1.5-5.0); LYMPH % 18.8 % (24.0-44.0); MEAN CORPUSCULAR HEMOGLOBIN 35.7 pg (27.0-33.0); MEAN CORPUSCULAR HGB CONC 35.7 g/dl (32.0-36.5); MONO % 12.6 % (2.0-8.0); NEUTROPHILS # 4.8 10^3/uL (1.5-8.5); NEUTROPHILS % 62.8 % (36.0-66.0); RED BLOOD COUNT 2.13 10^6/uL (4.30-6.10); WHITE BLOOD COUNT 7.7 10^3/uL (4.0-10.0)
[2021-11-24 08:57] LABS: ALBUMIN 2.4 GM/DL (3.2-5.2); ALT/SGPT 48 U/L (12-78); BILIRUBIN,TOTAL 4.1 MG/DL (0.2-1.0); BLOOD UREA NITROGEN 31 MG/DL (7-18); CALCIUM LEVEL 8.1 MG/DL (8.5-10.1); CARBON DIOXIDE LEVEL 24 MEQ/L (21-32); CHLORIDE LEVEL 106 MEQ/L (98-107); CREATININE FOR GFR 0.99 MG/DL (0.70-1.30); GLOMERULAR FILTRATION RATE > 60.0 (>56); GLUCOSE, FASTING 130 MG/DL (70-100); POTASSIUM SERUM 3.7 MEQ/L (3.5-5.1); SODIUM LEVEL 137 MEQ/L (136-145); TOTAL PROTEIN 5.4 GM/DL (6.4-8.2)
[2021-11-24] MEDS: PREPARATION H SUPP (HEMORRHOID) PR SCH ×2 (09:00→20:34)
[2021-11-24] MEDS: DOCUSATE SODIUM 100MG CAPSULE PO SCH ×2 (09:00→20:35)
[2021-11-24 09:01] LABS: ALBUMIN 2.5 GM/DL (3.2-5.2); BILIRUBIN,DIRECT 1.2 MG/DL (0.0-0.2); BILIRUBIN,TOTAL 4.1 MG/DL (0.2-1.0); TOTAL PROTEIN 5.3 GM/DL (6.4-8.2)
[2021-11-24] MEDS: CIPROFLOXACIN 500MG TABLET PO SCH (09:06)
[2021-11-24] MEDS: INSULIN LISPRO (NovoLOG) PER UNIT SC SCH ×4 (09:06→20:34)
[2021-11-24] MEDS: LACTOBACILLUS ACIDOPHILUS CAP (BACID) PO SCH ×2 (09:06→17:26)
[2021-11-24] MEDS: MIDODRINE 5 MG TAB PO SCH ×3 (09:29→16:10)
[2021-11-24 14:46] LABS: PH BODY FLUID 7.692 UNITS (NOT ESTABLISHED); SOURCE, BODY FLUID pH PLEURAL
[2021-11-24 14:54] LABS: APPEARANCE, BODY FLUID HAZY (CLEAR); PLEURAL FL COLOR RED (COLORLESS); SOURCE, BODY FLUID PLEURAL
[2021-11-24 15:13] LABS: AMYLASE, BODY FLUID 20 U/L (NOT ESTABLISHED); CHOLESTEROL, BODY FLUID < 50 MG/DL (NOT ESTABLISHED); LDH, BODY FLUID 79 U/L (NOT ESTABLISHED); SOURCE, BODY FLUID AMYLASE PLEURAL; SOURCE, BODY FLUID CHOL PLEURAL; SOURCE, BODY FLUID GLUCOSE PLEURAL; SOURCE, BODY FLUID LDH PLEURAL; SOURCE, BODY FLUID TRIG PLEURAL; TRIGLYCERIDE, BODY FLUID 21 MG/DL (NOT ESTABLISHED)
[2021-11-24 15:14] LABS: SOURCE, BODY FLUID ALBUMIN PLEURAL; SOURCE, BODY FLUID TOT PROTEIN PLEURAL; TOTAL PROTEIN, BODY FLUID 1.6 G/DL (NOT ESTABLISHED)
[2021-11-24 20:00] LABS: HEMOGLOBIN 7.7 g/dl (13.5-17.5)
[2021-11-24] MEDS: SENNA 8.6 MG TAB (SENOKOT) PO SCH (20:35)
[2021-11-24] MEDS: FOLIC ACID 1 MG TAB PO SCH (20:35)
[2021-11-24] MEDS: THIAMINE 100 MG TAB PO SCH (20:35)
[2021-11-24] MEDS: OMEPRAZOLE 20MG CAP PO SCH (20:36)
[2021-11-24] MEDS: ATORVASTATIN 20 MG TAB PO SCH (20:36)
[2021-11-24] MEDS: MULTIVITAMINS/MINERALS THERAP 1 TAB PO SCH (20:37)
[2021-11-25] VITALS (14 sets, daily range): BP systolic 90–120; BP diastolic 40–58
[2021-11-25 06:20] LABS: BASO # 0.1 10^3/uL (0.0-0.2); BASO % 0.4 % (0.0-1.0); EOS # 0.3 10^3/uL (0.0-0.5); EOS % 2.8 % (0.0-3.0); HEMATOCRIT 24.1 % (42.0-52.0); HEMOGLOBIN 8.4 g/dl (13.5-17.5); LYMPH # 1.9 10^3/uL (1.5-5.0); LYMPH % 16.3 % (24.0-44.0); MEAN CORPUSCULAR HEMOGLOBIN 34.4 pg (27.0-33.0); MEAN CORPUSCULAR HGB CONC 34.9 g/dl (32.0-36.5); MEAN CORPUSCULAR VOLUME 98.8 fl (80.0-96.0); MONO % 13.9 % (2.0-8.0); NEUTROPHILS # 7.6 10^3/uL (1.5-8.5); NEUTROPHILS % 65.1 % (36.0-66.0); PLATELET COUNT, AUTOMATED 112 10^3/uL (150-450); RED BLOOD COUNT 2.44 10^6/uL (4.30-6.10); WHITE BLOOD COUNT 11.6 10^3/uL (4.0-10.0)
[2021-11-25 06:58] LABS: ALBUMIN 2.4 GM/DL (3.2-5.2); ALT/SGPT 48 U/L (12-78); BILIRUBIN,TOTAL 5.1 MG/DL (0.2-1.0); BLOOD UREA NITROGEN 32 MG/DL (7-18); CALCIUM LEVEL 7.9 MG/DL (8.5-10.1); CARBON DIOXIDE LEVEL 23 MEQ/L (21-32); CHLORIDE LEVEL 104 MEQ/L (98-107); CREATININE FOR GFR 1.16 MG/DL (0.70-1.30); GLOMERULAR FILTRATION RATE > 60.0 (>56); GLUCOSE, FASTING 172 MG/DL (70-100); POTASSIUM SERUM 3.9 MEQ/L (3.5-5.1); SODIUM LEVEL 135 MEQ/L (136-145); TOTAL PROTEIN 5.2 GM/DL (6.4-8.2)
[2021-11-25 06:59] LABS: MONO # 1.6 10^3/uL (0.0-0.8)
[2021-11-25 07:00] LABS: ALBUMIN 2.4 GM/DL (3.2-5.2); BILIRUBIN,DIRECT 1.6 MG/DL (0.0-0.2); BILIRUBIN,TOTAL 5.1 MG/DL (0.2-1.0); TOTAL PROTEIN 5.3 GM/DL (6.4-8.2)
[2021-11-25] MEDS: CIPROFLOXACIN 500MG TABLET PO SCH ×2 (08:12→17:48)
[2021-11-25] MEDS: INSULIN LISPRO (NovoLOG) PER UNIT SC SCH ×4 (08:12→20:21)
[2021-11-25] MEDS: MIDODRINE 5 MG TAB PO SCH ×3 (08:13→16:27)
[2021-11-25] MEDS: DOCUSATE SODIUM 100MG CAPSULE PO SCH ×2 (08:13→20:33)
[2021-11-25] MEDS: metroNIDAZOLE (FLAGYL) 500MG TABLET PO SCH ×3 (08:13→20:32)
[2021-11-25] MEDS: LACTOBACILLUS ACIDOPHILUS CAP (BACID) PO SCH ×2 (08:13→17:48)
[2021-11-25] MEDS: PREPARATION H SUPP (HEMORRHOID) PR SCH ×2 (08:13→20:34)
[2021-11-25] MEDS: predniSONE 20 MG TAB PO SCH (08:35)
[2021-11-25] MEDS: FUROSEMIDE 20MG/2ML VIAL (J1940) IV SCH ×2 (09:00→17:13)
[2021-11-25] MEDS: OMEPRAZOLE 20MG CAP PO SCH (20:32)
[2021-11-25] MEDS: MULTIVITAMINS/MINERALS THERAP 1 TAB PO SCH (20:32)
[2021-11-25] MEDS: SENNA 8.6 MG TAB (SENOKOT) PO SCH (20:33)
[2021-11-25] MEDS: ATORVASTATIN 20 MG TAB PO SCH (20:33)
[2021-11-25] MEDS: FOLIC ACID 1 MG TAB PO SCH (20:33)
[2021-11-25] MEDS: THIAMINE 100 MG TAB PO SCH (20:33)
[2021-11-26] VITALS (12 sets, daily range): BP systolic 92–122; BP diastolic 43–60
[2021-11-26] MEDS: CIPROFLOXACIN 500MG TABLET PO SCH ×2 (05:29→18:07)
[2021-11-26 06:12] LABS: BASO # 0.1 10^3/uL (0.0-0.2); BASO % 0.4 % (0.0-1.0); EOS # 0.3 10^3/uL (0.0-0.5); EOS % 2.7 % (0.0-3.0); HEMOGLOBIN 8.1 g/dl (13.5-17.5); LYMPH # 1.5 10^3/uL (1.5-5.0); LYMPH % 12.8 % (24.0-44.0); MEAN CORPUSCULAR HGB CONC 35.2 g/dl (32.0-36.5); MEAN CORPUSCULAR VOLUME 96.6 fl (80.0-96.0); MONO % 14.8 % (2.0-8.0); NEUTROPHILS # 8.2 10^3/uL (1.5-8.5); NEUTROPHILS % 67.9 % (36.0-66.0); RED BLOOD COUNT 2.38 10^6/uL (4.30-6.10)
[2021-11-26 06:34] LABS: ALBUMIN 2.4 GM/DL (3.2-5.2); BILIRUBIN,DIRECT 1.3 MG/DL (0.0-0.2); BILIRUBIN,TOTAL 3.9 MG/DL (0.2-1.0); TOTAL PROTEIN 5.5 GM/DL (6.4-8.2)
[2021-11-26 07:15] LABS: MONO # 1.8 10^3/uL (0.0-0.8)
[2021-11-26] MEDS ORDERED: metOLazone 5 MG TAB PO ONE (07:30)
[2021-11-26] MEDS: INSULIN LISPRO (NovoLOG) PER UNIT SC SCH ×4 (08:18→22:11)
[2021-11-26] MEDS: LACTOBACILLUS ACIDOPHILUS CAP (BACID) PO SCH ×2 (08:18→18:07)
[2021-11-26] MEDS: MIDODRINE 5 MG TAB PO SCH ×3 (08:18→16:29)
[2021-11-26] MEDS: PREPARATION H SUPP (HEMORRHOID) PR SCH ×2 (08:21→21:00)
[2021-11-26] MEDS ORDERED: FUROSEMIDE injection 250 MG in D5W 225 ML IV SCH (10:00)
[2021-11-26] MEDS: DOCUSATE SODIUM 100MG CAPSULE PO SCH ×2 (10:18→22:12)
[2021-11-26] MEDS: metroNIDAZOLE (FLAGYL) 500MG TABLET PO SCH ×3 (10:18→22:12)
[2021-11-26] MEDS: predniSONE 20 MG TAB PO SCH (10:18)
[2021-11-26] MEDS ORDERED: LEVEMIR (INSULIN DETEMIR) 1 UNITS/0.01ML SC SCH (21:00)
[2021-11-26] MEDS: FOLIC ACID 1 MG TAB PO SCH (22:11)
[2021-11-26] MEDS: SENNA 8.6 MG TAB (SENOKOT) PO SCH (22:11)
[2021-11-26] MEDS: OMEPRAZOLE 20MG CAP PO SCH (22:12)
[2021-11-26] MEDS: THIAMINE 100 MG TAB PO SCH (22:12)
[2021-11-26] MEDS: ATORVASTATIN 20 MG TAB PO SCH (22:12)
[2021-11-26] MEDS: MULTIVITAMINS/MINERALS THERAP 1 TAB PO SCH (22:13)
[2021-11-27 04:00] VITALS: BP 120/56
[2021-11-27] MEDS: CIPROFLOXACIN 500MG TABLET PO SCH ×2 (05:07→17:12)
[2021-11-27 06:00] LABS: BASO % 0.4 % (0.0-1.0); EOS # 0.3 10^3/uL (0.0-0.5); EOS % 2.2 % (0.0-3.0); HEMATOCRIT 23.4 % (42.0-52.0); HEMOGLOBIN 8.4 g/dl (13.5-17.5); LYMPH # 1.6 10^3/uL (1.5-5.0); LYMPH % 14.2 % (24.0-44.0); MEAN CORPUSCULAR HEMOGLOBIN 34.9 pg (27.0-33.0); MEAN CORPUSCULAR HGB CONC 35.9 g/dl (32.0-36.5); MEAN CORPUSCULAR VOLUME 97.1 fl (80.0-96.0); MONO % 16.9 % (2.0-8.0); NEUTROPHILS # 7.4 10^3/uL (1.5-8.5); NEUTROPHILS % 65.5 % (36.0-66.0); RED BLOOD COUNT 2.41 10^6/uL (4.30-6.10); WHITE BLOOD COUNT 11.2 10^3/uL (4.0-10.0)
[2021-11-27] MEDS ORDERED: ACETAMINOPHEN 325 MG TAB PO ONE (06:05)
[2021-11-27 06:32] LABS: MONO # 1.9 10^3/uL (0.0-0.8)
[2021-11-27 06:39] LABS: ALBUMIN 2.8 GM/DL (3.2-5.2); ALT/SGPT 47 U/L (12-78); BILIRUBIN,DIRECT 1.3 MG/DL (0.0-0.2); BLOOD UREA NITROGEN 29 MG/DL (7-18); CALCIUM LEVEL 7.3 MG/DL (8.5-10.1); CARBON DIOXIDE LEVEL 25 MEQ/L (21-32); CHLORIDE LEVEL 102 MEQ/L (98-107); CREATININE FOR GFR 1.27 MG/DL (0.70-1.30); GLOMERULAR FILTRATION RATE > 60.0 (>56); GLUCOSE, FASTING 228 MG/DL (70-100); MAGNESIUM LEVEL 2.1 MG/DL (1.8-2.4); POTASSIUM SERUM 2.6 MEQ/L (3.5-5.1); SODIUM LEVEL 133 MEQ/L (136-145); TOTAL PROTEIN 5.4 GM/DL (6.4-8.2)
[2021-11-27] MEDS ORDERED: KCL 10MEQ/100ML SWI (KRUN) 10 MEQ in IV 1 EA IV ONE (06:40)
[2021-11-27] MEDS ORDERED: POTASSIUM CHLORIDE 10% LIQ 20 MEQ/15 ML UDC PO ONE (06:40)
[2021-11-27] MEDS ORDERED: MIDO5TA PO (07:35)
[2021-11-27] MEDS ORDERED: METR-265 PO (07:35)
[2021-11-27] MEDS ORDERED: CIPR-249 PO (07:35)
[2021-11-27 07:39] VITALS: BP 105/51
[2021-11-27] MEDS ORDERED: FUROSEMIDE 40MG/4ML VIAL (J1940) IV ONE ×2 (08:00→08:30)
[2021-11-27] MEDS ORDERED: LEVEMIR (INSULIN DETEMIR) 1 UNITS/0.01ML SC ONE (08:00)
[2021-11-27] MEDS ORDERED: metOLazone 5 MG TAB PO ONE (08:00)
[2021-11-27] MEDS: INSULIN LISPRO (NovoLOG) PER UNIT SC SCH ×3 (08:24→17:12)
[2021-11-27] MEDS: MIDODRINE 5 MG TAB PO SCH ×3 (08:25→15:34)
[2021-11-27] MEDS: DOCUSATE SODIUM 100MG CAPSULE PO SCH (08:25)
[2021-11-27] MEDS: LACTOBACILLUS ACIDOPHILUS CAP (BACID) PO SCH ×2 (08:25→17:12)
[2021-11-27] MEDS: predniSONE 20 MG TAB PO SCH (08:25)
[2021-11-27] MEDS: metroNIDAZOLE (FLAGYL) 500MG TABLET PO SCH ×2 (08:26→15:34)
[2021-11-27] MEDS: PREPARATION H SUPP (HEMORRHOID) PR SCH (08:27)
[2021-11-27] MEDS ORDERED: POTASSIUM CHLORIDE 10MEQ SR TABLET PO SCH (09:00)
[2021-11-27 10:22] VITALS: BP 123/58
[2021-11-27 10:34] LABS: BLOOD UREA NITROGEN 29 MG/DL (7-18); CALCIUM LEVEL 7.2 MG/DL (8.5-10.1); CARBON DIOXIDE LEVEL 25 MEQ/L (21-32); CHLORIDE LEVEL 102 MEQ/L (98-107); CREATININE FOR GFR 1.32 MG/DL (0.70-1.30); GLOMERULAR FILTRATION RATE > 60.0 (>56); GLUCOSE, FASTING 271 MG/DL (70-100); MAGNESIUM LEVEL 1.9 MG/DL (1.8-2.4); POTASSIUM SERUM 2.7 MEQ/L (3.5-5.1); SODIUM LEVEL 134 MEQ/L (136-145)
[2021-11-27] MEDS: POTASSIUM CHLORIDE 10MEQ SR TABLET PO SCH ×6 (11:09→16:43)
[2021-11-27 13:29] LABS: MAGNESIUM LEVEL 1.9 MG/DL (1.8-2.4)
[2021-11-27] MEDS ORDERED: MAG SULF 1GM/100ML (MAG RUN) 1 GM in IV 1 EA IV ONE (14:00)
[2021-11-27 17:12] LABS: CALCIUM LEVEL 7.4 MG/DL (8.5-10.1); CREATININE FOR GFR 1.58 MG/DL (0.70-1.30); GLOMERULAR FILTRATION RATE 49.7 (>56); POTASSIUM SERUM 3.8 MEQ/L (3.5-5.1)
== END 2021-11-27 17:49 | disposition home or self-care (01) | DRG 433 ==
LOC: M ED 20:37 → M ED INP 11-22 04:53 → ENRESERV 11-22 12:38 → M PCU 11-22 14:23
PROVIDERS: ADMIT Family Medicine; ATTEND General Practice
PROC: 0W9G3ZZ Drainage of Peritoneal Cavity, Percutaneous Approach (ICD-10-PCS; principal; 2021-11-23 10:30)
PROC: 0W993ZZ Drainage of Right Pleural Cavity, Percutaneous Approach (ICD-10-PCS; 2021-11-24)
PROC: 30233N1 Transfusion of Nonautologous Red Blood Cells into Peripheral Vein, Percutaneous Approach (ICD-10-PCS; 2021-11-26)
DX: K70.31 Alcoholic cirrhosis of liver with ascites (principal); I50.32 Chronic diastolic (congestive) heart failure; J90 Pleural effusion, not elsewhere classified; N17.9 Acute kidney failure, unspecified; I85.10 Secondary esophageal varices without bleeding; K76.6 Portal hypertension; E87.1 Hypo-osmolality and hyponatremia; Z68.41 Body mass index [BMI] 40.0-44.9, adult; R42 Dizziness and giddiness; F10.20 Alcohol dependence, uncomplicated; F17.210 Nicotine dependence, cigarettes, uncomplicated; E11.9 Type 2 diabetes mellitus without complications; E78.5 Hyperlipidemia, unspecified; E66.01 Morbid (severe) obesity due to excess calories; I11.0 Hypertensive heart disease with heart failure; J30.9 Allergic rhinitis, unspecified; E87.6 Hypokalemia; D69.6 Thrombocytopenia, unspecified; I95.89 Other hypotension; K59.00 Constipation, unspecified; D50.9 Iron deficiency anemia, unspecified; K70.11 Alcoholic hepatitis with ascites; K64.8 Other hemorrhoids; G47.33 Obstructive sleep apnea (adult) (pediatric); D72.829 Elevated white blood cell count, unspecified; Z79.84 Long term (current) use of oral hypoglycemic drugs; Z79.899 Other long term (current) drug therapy; Z88.8 Allergy status to other drugs, medicaments and biological substances

== ENCOUNTER 2021-11-30 14:06 | Inpatient (IN) | payer OTHER ==
[~2021-11-30] VITALS: Ht 188 cm; Wt 152.2 kg
[~2021-11-30 14:06] MED LIST changes: +METR-265 PO; +MIDO5TA PO
[2021-11-30 18:53] LABS: BASO # 0.1 10^3/uL (0.0-0.2); BASO % 0.4 % (0.0-1.0); EOS # 0.4 10^3/uL (0.0-0.5); EOS % 3.3 % (0.0-3.0); HEMATOCRIT 24.7 % (42.0-52.0); HEMOGLOBIN 8.8 g/dl (13.5-17.5); LYMPH # 1.6 10^3/uL (1.5-5.0); LYMPH % 11.5 % (24.0-44.0); MEAN CORPUSCULAR HEMOGLOBIN 34.8 pg (27.0-33.0); MEAN CORPUSCULAR HGB CONC 35.6 g/dl (32.0-36.5); MEAN CORPUSCULAR VOLUME 97.6 fl (80.0-96.0); MONO % 12.9 % (2.0-8.0); NEUTROPHILS # 9.5 10^3/uL (1.5-8.5); NEUTROPHILS % 70.6 % (36.0-66.0); RED BLOOD COUNT 2.53 10^6/uL (4.30-6.10); WHITE BLOOD COUNT 13.5 10^3/uL (4.0-10.0)
[2021-11-30 19:03] LABS: INR 2.04; PROTHROMBIN TIME 23.4 SECONDS (12.7-14.5)
[2021-11-30 19:04] LABS: PARTIAL THROMBOPLASTIN TIME 44.7 SECONDS (25.9-37.0)
[2021-11-30 19:32] LABS: MONO # 1.7 10^3/uL (0.0-0.8); PLATELET COUNT, AUTOMATED 97 10^3/uL (150-450)
[2021-11-30 19:35] LABS: MB/CK RELATIVE INDEX 0.57 (< OR =4)
[2021-11-30 19:42] LABS: ALBUMIN 2.6 GM/DL (3.2-5.2); BILIRUBIN,DIRECT 1.7 MG/DL (0.0-0.2); BILIRUBIN,TOTAL 5.2 MG/DL (0.2-1.0); CALCIUM LEVEL 7.7 MG/DL (8.5-10.1); CREATININE FOR GFR 1.8 MG/DL (0.70-1.30); FREE T4 1.04 NG/DL (0.76-1.46); GLOMERULAR FILTRATION RATE 42.7 (>56); POTASSIUM SERUM 2.4 MEQ/L (3.5-5.1); THYROID STIMULATING HORMONE 2.46 uIU/ML (0.358-3.740); TOTAL PROTEIN 5.5 GM/DL (6.4-8.2)
[2021-11-30] MEDS ORDERED: POTASSIUM CHLORIDE 10MEQ SR TABLET PO ONE ×2 (19:50→21:30)
[2021-11-30] MEDS ORDERED: KCL 10MEQ/100ML SWI (KRUN) 10 MEQ in IV 1 EA IV ONE (19:50)
[2021-11-30] MEDS ORDERED: PIPERACILLIN/TAZOBACTAM SOD 3.375 GM in D5W MINI-BAG PLUS 50 ML IV ONE (20:30)
[2021-11-30] MEDS ORDERED: ACETAMINOPHEN TAB 650MG DOSE (2X325MG) PO PRN (20:45)
[2021-11-30] MEDS ORDERED: GLUCAGON INJ 1MG VIAL SC PRN (20:45)
[2021-11-30] MEDS ORDERED: GLUCOSE 4GM CHEW TABLET PO PRN (20:45)
[2021-11-30] MEDS ORDERED: DEXTROSE 50% 50 ML SYRINGE IV PRN (20:45)
[2021-11-30] MEDS ORDERED: CIPR500S PO (20:53)
[2021-11-30] MEDS ORDERED: METR-265 PO (20:53)
[2021-11-30] MEDS ORDERED: [UNRECOGNIZED DRUG - CODE] PR (20:53)
[2021-11-30] MEDS ORDERED: MIDO5TA PO (20:53)
[2021-11-30] MEDS ORDERED: MIRA3350 PO (20:53)
[2021-11-30] MEDS ORDERED: HOME MED LIST COMPLETE! XX SCH (20:55)
[2021-11-30] MEDS ORDERED: SPIRONOLACTONE 25 MG TAB PO SCH (21:00)
[2021-11-30] MEDS ORDERED: OMEPRAZOLE 20MG CAP PO SCH (21:00)
[2021-11-30] MEDS ORDERED: MIRALAX *UNIT DOSE* 17GM PACKET PO PRN (21:15)
[2021-11-30] MEDS: FOLIC ACID 1 MG TAB PO SCH (22:15)
[2021-11-30] MEDS: MULTIVITAMINS/MINERALS THERAP 1 TAB PO SCH (22:16)
[2021-11-30] MEDS: THIAMINE 100 MG TAB PO SCH (22:16)
[2021-11-30] MEDS: INSULIN LISPRO (NovoLOG) PER UNIT SC SCH (22:30)
[2021-11-30 23:40] VITALS: BP 103/55
[2021-12-01] VITALS (11 sets, daily range): BP systolic 91–135; BP diastolic 52–61
[2021-12-01 00:23] LABS: BLOOD UREA NITROGEN 30 MG/DL (7-18); CALCIUM LEVEL 6.5 MG/DL (8.5-10.1); CARBON DIOXIDE LEVEL 23 MEQ/L (21-32); CHLORIDE LEVEL 101 MEQ/L (98-107); CREATININE FOR GFR 1.34 MG/DL (0.70-1.30); GLOMERULAR FILTRATION RATE > 60.0 (>56); GLUCOSE, FASTING 111 MG/DL (70-100); MAGNESIUM LEVEL 1.4 MG/DL (1.8-2.4); POTASSIUM SERUM 2.3 MEQ/L (3.5-5.1); SODIUM LEVEL 134 MEQ/L (136-145)
[2021-12-01] MEDS: POTASSIUM CHLORIDE 10MEQ SR TABLET PO SCH ×4 (00:37→22:49)
[2021-12-01] MEDS: MAG SULF 1GM/100ML (MAG RUN) 1 GM in IV 1 EA IV SCH ×2 (00:42→03:15)
[2021-12-01] MEDS: KCL 40MEQ in NS 1000ML 1,000 ML IV SCH ×2 (00:42→07:30)
[2021-12-01 03:52] LABS: HEMATOCRIT 23.6 % (42.0-52.0); HEMOGLOBIN 8.7 g/dl (13.5-17.5); MEAN CORPUSCULAR HEMOGLOBIN 34.8 pg (27.0-33.0); MEAN CORPUSCULAR VOLUME 94.4 fl (80.0-96.0); WHITE BLOOD COUNT 11.8 10^3/uL (4.0-10.0)
[2021-12-01 03:56] LABS: MEAN CORPUSCULAR HGB CONC 36.9 g/dl (32.0-36.5); PLATELET COUNT, AUTOMATED 91 10^3/uL (150-450)
[2021-12-01 03:58] LABS: APPEARANCE, URINE CLEAR (CLEAR); BACTERIA, URINE AUTO NEGATIVE (NEGATIVE); BILIRUBIN, URINE AUTO NEGATIVE (NEGATIVE); BLOOD, URINE BLOOD NEGATIVE (NEGATIVE); COLOR, URINE YELLOW (YELLOW); GLUCOSE, URINE (UA) AUTO NEGATIVE (NEGATIVE); KETONE, URINE AUTO NEGATIVE (NEGATIVE); LEUKOCYTE ESTERASE, URINE AUTO TRACE (NEGATIVE); NITRITE, URINE AUTO NEGATIVE (NEGATIVE); PROTEIN, URINE AUTO NEGATIVE (NEGATIVE); RBC, URINE AUTO 0 /HPF (0-3); SPECIFIC GRAVITY URINE AUTO 1.009 (1.002-1.035); SQUAMOUS EPITHELIAL CELL UR AU 0 /HPF (0-6); UROBILINOGEN, URINE AUTO 0.2 mg/dL (0.0-2.0); WBC, URINE AUTO 3 /HPF (0-3)
[2021-12-01 04:16] LABS: CREATININE,RANDOM URINE 69.2 MG/DL; TOTAL PROTEIN,RANDOM URINE 13.7 MG/DL (0.0-12.0)
[2021-12-01] MEDS: PIPERACILLIN/TAZOBACTAM SOD 3.375 GM in D5W MINI-BAG PLUS 50 ML IV SCH ×4 (04:40→21:24)
[2021-12-01 05:10] LABS: ALBUMIN 2.5 GM/DL (3.2-5.2); BILIRUBIN,TOTAL 6.2 MG/DL (0.2-1.0); CALCIUM LEVEL 8.1 MG/DL (8.5-10.1); CREATININE FOR GFR 1.62 MG/DL (0.70-1.30); GLOMERULAR FILTRATION RATE 48.3 (>56); MAGNESIUM LEVEL 2.1 MG/DL (1.8-2.4); POTASSIUM SERUM 2.6 MEQ/L (3.5-5.1); TOTAL PROTEIN 5.2 GM/DL (6.4-8.2)
[2021-12-01] MEDS: INSULIN LISPRO (NovoLOG) PER UNIT SC SCH ×5 (08:09→21:00)
[2021-12-01] MEDS: HEPARIN SOD (PORCINE) 5000UNITS/ML 1ML VIAL/SYRINGE SC SCH ×3 (09:00→21:22)
[2021-12-01] MEDS ORDERED: POTASSIUM CHLORIDE 10MEQ SR TABLET PO ONE (10:00)
[2021-12-01] MEDS: MIDODRINE 5 MG TAB PO SCH ×3 (10:09→16:07)
[2021-12-01] MEDS: LACTOBACILLUS ACIDOPHILUS CAP (BACID) PO SCH ×2 (10:09→18:50)
[2021-12-01 13:43] LABS: CALCIUM LEVEL 8.5 MG/DL (8.5-10.1); CREATININE FOR GFR 1.47 MG/DL (0.70-1.30); MAGNESIUM LEVEL 2.3 MG/DL (1.8-2.4)
[2021-12-01 18:30] LABS: HEMATOCRIT 24.3 % (42.0-52.0); HEMOGLOBIN 8.8 g/dl (13.5-17.5); MEAN CORPUSCULAR HEMOGLOBIN 34.8 pg (27.0-33.0); MEAN CORPUSCULAR HGB CONC 36.2 g/dl (32.0-36.5); RED BLOOD COUNT 2.53 10^6/uL (4.30-6.10); WHITE BLOOD COUNT 10.7 10^3/uL (4.0-10.0)
[2021-12-01 18:40] LABS: PLATELET COUNT, AUTOMATED 92 10^3/uL (150-450)
[2021-12-01 19:01] LABS: CALCIUM LEVEL 7.7 MG/DL (8.5-10.1); CREATININE FOR GFR 1.47 MG/DL (0.70-1.30); POTASSIUM SERUM 2.9 MEQ/L (3.5-5.1)
[2021-12-01] MEDS: MULTIVITAMINS/MINERALS THERAP 1 TAB PO SCH (21:15)
[2021-12-01] MEDS: FOLIC ACID 1 MG TAB PO SCH (21:15)
[2021-12-01] MEDS: THIAMINE 100 MG TAB PO SCH (21:15)
[2021-12-02] VITALS (14 sets, daily range): BP systolic 90–112; BP diastolic 40–66
[2021-12-02] MEDS: PIPERACILLIN/TAZOBACTAM SOD 3.375 GM in D5W MINI-BAG PLUS 50 ML IV SCH ×4 (04:22→22:14)
[2021-12-02 05:23] LABS: HEMATOCRIT 23.6 % (42.0-52.0); HEMOGLOBIN 8.5 g/dl (13.5-17.5); MEAN CORPUSCULAR HEMOGLOBIN 34.6 pg (27.0-33.0); MEAN CORPUSCULAR VOLUME 95.9 fl (80.0-96.0); RED BLOOD COUNT 2.46 10^6/uL (4.30-6.10); WHITE BLOOD COUNT 9.9 10^3/uL (4.0-10.0)
[2021-12-02 05:42] LABS: ALBUMIN 2.6 GM/DL (3.2-5.2); BILIRUBIN,TOTAL 5.9 MG/DL (0.2-1.0); CALCIUM LEVEL 8.4 MG/DL (8.5-10.1); CREATININE FOR GFR 1.36 MG/DL (0.70-1.30); GLOMERULAR FILTRATION RATE 59.1 (>56); MAGNESIUM LEVEL 2.3 MG/DL (1.8-2.4); POTASSIUM SERUM 3.1 MEQ/L (3.5-5.1); TOTAL PROTEIN 5.4 GM/DL (6.4-8.2)
[2021-12-02] MEDS ORDERED: POTASSIUM CHLORIDE 10MEQ SR TABLET PO ONE ×4 (07:10→21:30)
[2021-12-02] MEDS ORDERED: FLUBLOK(EGG FREE)(QUAD)INFLUENZA VACC 0.5ML SYRINGE 18YRS & OLDER IM.IMMUN ONE (09:00)
[2021-12-02] MEDS: PREPARATION H SUPP (HEMORRHOID) PR SCH ×2 (09:00→09:29)
[2021-12-02] MEDS: MIDODRINE 5 MG TAB PO SCH ×3 (09:29→17:04)
[2021-12-02] MEDS: LACTOBACILLUS ACIDOPHILUS CAP (BACID) PO SCH ×2 (09:29→17:45)
[2021-12-02] MEDS: INSULIN LISPRO (NovoLOG) PER UNIT SC SCH ×4 (09:30→20:50)
[2021-12-02 12:01] LABS: SOURCE, BODY FLUID pH PLEURAL
[2021-12-02] MEDS: SPIRONOLACTONE 25 MG TAB PO SCH ×2 (12:03→17:04)
[2021-12-02 12:12] LABS: APPEARANCE, BODY FLUID TURBID (CLEAR); PLEURAL FL COLOR RED (COLORLESS); SOURCE, BODY FLUID PLEURAL
[2021-12-02 12:24] LABS: AMYLASE, BODY FLUID 26 U/L (NOT ESTABLISHED); CHOLESTEROL, BODY FLUID < 50 MG/DL (NOT ESTABLISHED); LDH, BODY FLUID 130 U/L (NOT ESTABLISHED); SOURCE, BODY FLUID ALBUMIN PLEURAL; SOURCE, BODY FLUID AMYLASE PLEURAL; SOURCE, BODY FLUID CHOL PLEURAL; SOURCE, BODY FLUID GLUCOSE PLEURAL; SOURCE, BODY FLUID LDH PLEURAL; SOURCE, BODY FLUID TOT PROTEIN PLEURAL; SOURCE, BODY FLUID TRIG PLEURAL; TOTAL PROTEIN, BODY FLUID 1.7 G/DL (NOT ESTABLISHED); TRIGLYCERIDE, BODY FLUID 19 MG/DL (NOT ESTABLISHED)
[2021-12-02 16:41] LABS: BLOOD UREA NITROGEN 32 MG/DL (7-18); CALCIUM LEVEL 7.5 MG/DL (8.5-10.1); CARBON DIOXIDE LEVEL 27 MEQ/L (21-32); CHLORIDE LEVEL 101 MEQ/L (98-107); CREATININE FOR GFR 1.34 MG/DL (0.70-1.30); GLOMERULAR FILTRATION RATE > 60.0 (>56); GLUCOSE, FASTING 189 MG/DL (70-100); POTASSIUM SERUM 3.1 MEQ/L (3.5-5.1); SODIUM LEVEL 135 MEQ/L (136-145)
[2021-12-02] MEDS: FOLIC ACID 1 MG TAB PO SCH (20:48)
[2021-12-02] MEDS: MULTIVITAMINS/MINERALS THERAP 1 TAB PO SCH (20:49)
[2021-12-02] MEDS: THIAMINE 100 MG TAB PO SCH (20:49)
[2021-12-03] MEDS: PIPERACILLIN/TAZOBACTAM SOD 3.375 GM in D5W MINI-BAG PLUS 50 ML IV SCH ×2 (04:30→10:35)
[2021-12-03 04:31] VITALS: BP 96/46
[2021-12-03 05:13] LABS: HEMATOCRIT 24.1 % (42.0-52.0); HEMOGLOBIN 8.6 g/dl (13.5-17.5); MEAN CORPUSCULAR HEMOGLOBIN 34.4 pg (27.0-33.0); MEAN CORPUSCULAR HGB CONC 35.7 g/dl (32.0-36.5); MEAN CORPUSCULAR VOLUME 96.4 fl (80.0-96.0)
[2021-12-03 05:41] LABS: ALBUMIN 2.5 GM/DL (3.2-5.2); ALT/SGPT 58 U/L (12-78); BILIRUBIN,TOTAL 6.5 MG/DL (0.2-1.0); BLOOD UREA NITROGEN 32 MG/DL (7-18); CALCIUM LEVEL 7.3 MG/DL (8.5-10.1); CARBON DIOXIDE LEVEL 27 MEQ/L (21-32); CHLORIDE LEVEL 100 MEQ/L (98-107); CREATININE FOR GFR 1.23 MG/DL (0.70-1.30); GLOMERULAR FILTRATION RATE > 60.0 (>56); GLUCOSE, FASTING 112 MG/DL (70-100); MAGNESIUM LEVEL 2.1 MG/DL (1.8-2.4); POTASSIUM SERUM 3.6 MEQ/L (3.5-5.1); SODIUM LEVEL 133 MEQ/L (136-145); TOTAL PROTEIN 4.9 GM/DL (6.4-8.2)
[2021-12-03] MEDS: INSULIN LISPRO (NovoLOG) PER UNIT SC SCH ×4 (07:30→21:00)
[2021-12-03] MEDS: POTASSIUM CHLORIDE 10MEQ SR TABLET PO SCH ×2 (08:04→21:10)
[2021-12-03] MEDS: LACTOBACILLUS ACIDOPHILUS CAP (BACID) PO SCH ×2 (08:04→18:31)
[2021-12-03] MEDS: MIDODRINE 5 MG TAB PO SCH ×3 (08:04→16:43)
[2021-12-03 08:05] VITALS: BP 96/44
[2021-12-03] MEDS: PREPARATION H SUPP (HEMORRHOID) PR SCH (08:05)
[2021-12-03] MEDS: SPIRONOLACTONE 25 MG TAB PO SCH ×2 (08:05→16:43)
[2021-12-03 12:04] VITALS: BP_SYST 101; BP_SYST 96; BP_DIAS 42
[2021-12-03] MEDS: AUGMENTIN 875 MG TAB PO SCH ×2 (14:31→21:10)
[2021-12-03 16:20] VITALS: BP 107/51
[2021-12-03 20:00] VITALS: BP 111/51
[2021-12-03] MEDS: MULTIVITAMINS/MINERALS THERAP 1 TAB PO SCH (21:11)
[2021-12-03] MEDS: FOLIC ACID 1 MG TAB PO SCH (21:11)
[2021-12-03] MEDS: THIAMINE 100 MG TAB PO SCH (21:11)
[2021-12-04] VITALS (8 sets, daily range): BP systolic 80–119; BP diastolic 40–54
[2021-12-04 03:55] LABS: HEMATOCRIT 23.3 % (42.0-52.0); MEAN CORPUSCULAR HEMOGLOBIN 33.3 pg (27.0-33.0); MEAN CORPUSCULAR HGB CONC 34.3 g/dl (32.0-36.5); MEAN CORPUSCULAR VOLUME 97.1 fl (80.0-96.0); WHITE BLOOD COUNT 9.9 10^3/uL (4.0-10.0)
[2021-12-04 04:18] LABS: ALBUMIN 2.3 GM/DL (3.2-5.2); BILIRUBIN,TOTAL 5.3 MG/DL (0.2-1.0); CALCIUM LEVEL 7.8 MG/DL (8.5-10.1); CREATININE FOR GFR 1.43 MG/DL (0.70-1.30); GLOMERULAR FILTRATION RATE 55.7 (>56); MAGNESIUM LEVEL 2.3 MG/DL (1.8-2.4); POTASSIUM SERUM 3.8 MEQ/L (3.5-5.1); TOTAL PROTEIN 4.6 GM/DL (6.4-8.2)
[2021-12-04] MEDS: MIDODRINE 5 MG TAB PO SCH ×3 (04:27→17:40)
[2021-12-04] MEDS ORDERED: SODIUM CHLORIDE 0.9% 1000ML IV ONE (05:50)
[2021-12-04] MEDS: INSULIN LISPRO (NovoLOG) PER UNIT SC SCH ×4 (07:30→20:19)
[2021-12-04] MEDS: POTASSIUM CHLORIDE 10MEQ SR TABLET PO SCH ×2 (08:47→21:16)
[2021-12-04] MEDS: LACTOBACILLUS ACIDOPHILUS CAP (BACID) PO SCH ×2 (08:47→17:39)
[2021-12-04] MEDS: SPIRONOLACTONE 25 MG TAB PO SCH (08:48)
[2021-12-04] MEDS: AUGMENTIN 875 MG TAB PO SCH ×2 (08:50→21:15)
[2021-12-04] MEDS: PREPARATION H SUPP (HEMORRHOID) PR SCH (08:50)
[2021-12-04 09:26] LABS: HEMATOCRIT 23.9 % (42.0-52.0); HEMOGLOBIN 8.4 g/dl (13.5-17.5); MEAN CORPUSCULAR HEMOGLOBIN 34.6 pg (27.0-33.0); MEAN CORPUSCULAR HGB CONC 35.1 g/dl (32.0-36.5); MEAN CORPUSCULAR VOLUME 98.4 fl (80.0-96.0); PLTBLUE- EDTA FREE CALC 87 K/mm3 (172-450); RED BLOOD COUNT 2.43 10^6/uL (4.30-6.10); WHITE BLOOD COUNT 10.1 10^3/uL (4.0-10.0)
[2021-12-04 10:00] LABS: PLTBLUE- EDTA FREE MACHINE 79 10^3/uL (172-450)
[2021-12-04] MEDS: THIAMINE 100 MG TAB PO SCH (21:14)
[2021-12-04] MEDS: MULTIVITAMINS/MINERALS THERAP 1 TAB PO SCH (21:15)
[2021-12-04] MEDS: FOLIC ACID 1 MG TAB PO SCH (21:15)
[2021-12-05] VITALS: BP 100/40
[2021-12-05 04:00] VITALS: BP 98/44
[2021-12-05] MEDS: MIDODRINE 5 MG TAB PO SCH ×2 (04:28→11:47)
[2021-12-05 05:18] VITALS: BP 100/50
[2021-12-05 05:24] LABS: HEMATOCRIT 25.1 % (42.0-52.0); HEMOGLOBIN 8.7 g/dl (13.5-17.5); MEAN CORPUSCULAR HEMOGLOBIN 33.7 pg (27.0-33.0); MEAN CORPUSCULAR HGB CONC 34.7 g/dl (32.0-36.5); MEAN CORPUSCULAR VOLUME 97.3 fl (80.0-96.0); RED BLOOD COUNT 2.58 10^6/uL (4.30-6.10); WHITE BLOOD COUNT 11.1 10^3/uL (4.0-10.0)
[2021-12-05 05:40] LABS: ALBUMIN 2.4 GM/DL (3.2-5.2); BILIRUBIN,TOTAL 4.6 MG/DL (0.2-1.0); CALCIUM LEVEL 7.2 MG/DL (8.5-10.1); CREATININE FOR GFR 1.47 MG/DL (0.70-1.30); MAGNESIUM LEVEL 2.1 MG/DL (1.8-2.4); POTASSIUM SERUM 3.9 MEQ/L (3.5-5.1); TOTAL PROTEIN 5.1 GM/DL (6.4-8.2)
[2021-12-05 08:36] VITALS: BP 94/45
[2021-12-05] MEDS: INSULIN LISPRO (NovoLOG) PER UNIT SC SCH ×2 (08:42→11:48)
[2021-12-05] MEDS: PREPARATION H SUPP (HEMORRHOID) PR SCH (08:42)
[2021-12-05] MEDS: POTASSIUM CHLORIDE 10MEQ SR TABLET PO SCH (08:43)
[2021-12-05] MEDS: LACTOBACILLUS ACIDOPHILUS CAP (BACID) PO SCH (08:43)
[2021-12-05] MEDS: SPIRONOLACTONE 25 MG TAB PO SCH (08:43)
[2021-12-05] MEDS: AUGMENTIN 875 MG TAB PO SCH (08:48)
[2021-12-05] MEDS ORDERED: SPIR-10 PO (09:48)
[2021-12-05] MEDS ORDERED: POTA-136 PO (09:48)
[2021-12-05] MEDS ORDERED: AMOX875T2 PO (09:48)
[2021-12-05 11:45] VITALS: BP 105/49
== END 2021-12-05 14:54 | disposition home health service (06) | DRG 433 ==
LOC: M ED 14:06 → M ED INP 20:45 → ENRESERV 12-01 11:08 → M PCU 12-01 12:30
PROVIDERS: ADMIT Internal Medicine; ATTEND Internal Medicine
PROC: 30233N1 Transfusion of Nonautologous Red Blood Cells into Peripheral Vein, Percutaneous Approach (ICD-10-PCS; principal; 2021-11-30)
PROC: 0W9G3ZZ Drainage of Peritoneal Cavity, Percutaneous Approach (ICD-10-PCS; 2021-12-01)
PROC: 30233J1 Transfusion of Nonautologous Serum Albumin into Peripheral Vein, Percutaneous Approach (ICD-10-PCS; 2021-12-01)
PROC: 0W993ZZ Drainage of Right Pleural Cavity, Percutaneous Approach (ICD-10-PCS; 2021-12-02)
DX: K70.31 Alcoholic cirrhosis of liver with ascites (principal); I50.32 Chronic diastolic (congestive) heart failure; J90 Pleural effusion, not elsewhere classified; N17.9 Acute kidney failure, unspecified; D64.9 Anemia, unspecified; E11.9 Type 2 diabetes mellitus without complications; E78.5 Hyperlipidemia, unspecified; E83.42 Hypomagnesemia; I95.9 Hypotension, unspecified; I11.0 Hypertensive heart disease with heart failure; K59.09 Other constipation; E66.9 Obesity, unspecified; F17.200 Nicotine dependence, unspecified, uncomplicated; E87.6 Hypokalemia; K64.8 Other hemorrhoids; K21.9 Gastro-esophageal reflux disease without esophagitis; Z79.84 Long term (current) use of oral hypoglycemic drugs; Z79.899 Other long term (current) drug therapy; Z88.8 Allergy status to other drugs, medicaments and biological substances

== ENCOUNTER → 2021-12-07 | Outpatient (CLI) | payer OTHER ==
[~2021-12-07] MED LIST changes: +AMOX875T2 PO; +CIPR500S PO; +MIRA3350 PO; +POTA-136 PO; +[UNRECOGNIZED DRUG - CODE] PR
[2021-12-07 11:05] VITALS: BP 107/45
[2021-12-07 11:14] VITALS: BP 104/47
[2021-12-07 11:27] VITALS: BP 99/41
[2021-12-07 11:43] VITALS: BP 126/58
== END ==
LOC: M IRPRO 10:27
PROVIDERS: ATTEND Family Medicine
DX: K74.60 Unspecified cirrhosis of liver (principal)
CPT/HCPCS: 49083; 96365; P9047

== ENCOUNTER → 2021-12-10 | Outpatient (CLI) | payer OTHER ==
[2021-12-10 14:03] VITALS: BP 110/48
[2021-12-10 15:30] VITALS: BP 112/48
== END ==
LOC: M IRPRO 12:31
PROVIDERS: ATTEND Family Medicine
DX: J90 Pleural effusion, not elsewhere classified (principal)
CPT/HCPCS: 32555; 96365; P9047

== ENCOUNTER → 2021-12-14 | Outpatient (CLI) | payer OTHER ==
[2021-12-14 08:40] VITALS: BP 105/47
[2021-12-14 08:54] VITALS: BP 108/49
[2021-12-14 09:07] VITALS: BP 139/79
[2021-12-14 09:22] VITALS: BP 110/59
== END ==
LOC: M IRPRO 07:39
PROVIDERS: ATTEND Family Medicine
DX: K74.60 Unspecified cirrhosis of liver (principal)
CPT/HCPCS: 49083; 96365; P9047